=== PATIENT | male | born 1980 | race Two or more races ===

== ENCOUNTER 2024-01-14 07:42 | Inpatient (IN) | payer OTHER ==
[~2024-01-14] VITALS: Ht 165.1 cm; Wt 82.6 kg
[2024-01-14] VITALS (58 sets, daily range): BP systolic 79–135; BP diastolic 58–109; TEMP 97.8–100.2; O2SAT 67–100
[~2024-01-14 07:42] MED LIST: ALBU8.5H8 IH; ALBU8.5H8 INH; ASPI-1169 PO; CARV6.252 PO; FLUT1DIS3 IH; FURO40TA5 PO; NITR0.4T48 SL; PRED50TA PO
[2024-01-14] MEDS ORDERED: ADENOSINE 6 MG/2 ML VIAL ONE ×3 (08:04→21:18)
[2024-01-14] MEDS ORDERED: ONDANSETRON HCL/PF 4 MG/2 ML VIAL ONE (08:12)
[2024-01-14] MEDS ORDERED: MORPHINE SULFATE INJ 4 MG/ML DISP.SYRIN ONE (08:12)
[2024-01-14] MEDS ORDERED: AMIODARONE 150 MG/3 ML VIAL IV ONE ×2 (08:15→08:30)
[2024-01-14] MEDS: ONDANSETRON HCL/PF 4 MG/2 ML VIAL IVP ONE (08:20)
[2024-01-14] MEDS: MORPHINE SULFATE INJ 2 MG/ML DISP.SYRIN IV ONE (08:21)
[2024-01-14] MEDS: IV NS 0.9% 1,000 ML BAG IV ONE (08:21)
[2024-01-14 08:26] LABS: BASOPHILS # (AUTO) 0.1 K/uL (0.0-0.2); BASOPHILS % (AUTO) 0.8 % (0.0-2.0); EOSINOPHILS # (AUTO) 0.2 K/uL (0.0-0.7); EOSINOPHILS % (AUTO) 2.1 % (0.0-6.0); HEMATOCRIT 40 % (39-51); HEMOGLOBIN 13.1 g/dL (13.5-17.5); LYMPHOCYTES # (AUTO) 1.4 K/uL (0.8-4.8); LYMPHOCYTES % (AUTO) 14.9 % (20.0-44.0); MEAN CORPUSCULAR HEMOGLOBIN 30 PG (26.0-33.0); MEAN CORPUSCULAR HGB CONC 33 g/dl (31.0-36.0); MEAN CORPUSCULAR VOLUME 92 fL (80-96); MONOCYTES # (AUTO) 0.7 K/uL (0.1-1.30); MONOCYTES % (AUTO) 6.8 % (2.0-12.0); NEUTROPHILS # (AUTO) 7.2 K/uL (1.8-8.9); NEUTROPHILS % (AUTO) 75.4 % (43.0-81.0); PLATELET COUNT (AUTO) 213 K/uL (150-450); RED BLOOD CELL COUNT(AUTO) 4.38 MIL/uL (4.5-6.0); RED CELL DISTRIBUTION WIDTH 13.8 % (11.5-15.0); WHITE BLOOD COUNT (AUTO) 9.5 K/uL (4.3-11.0)
[2024-01-14] MEDS: AMIODARONE 150 MG in IV D5W 100 ML IV ONE ×2 (08:30→22:16)
[2024-01-14 08:32] LABS: CARBON DIOXIDE 27 mmol/L (21-32); CHLORIDE 106 mmol/L (98-107); GLUCOSE 105 mg/dL (74-106); POTASSIUM 3.9 mmol/L (3.5-5.1); SODIUM SERUM 140 mmol/L (136-145); UREA NITROGEN, BLOOD 16 mg/dL (7-18)
[2024-01-14 08:37] LABS: ALANINE AMINOTRANSFERASE 72 U/L (12-78); ALBUMIN 3.3 g/dL (3.4-5.0); ALKALINE PHOSPHATASE 104 U/L (46-116); ASPARTATE AMINOTRANSFERASE 58 U/L (15-37); BILIRUBIN,DIRECT 0.2 mg/dL (0.0-0.2); BILIRUBIN,TOTAL 0.8 mg/dL (0.2-1.0); LIPASE 46 U/L (16-77); TOTAL PROTEIN, SERUM 7.4 g/dL (6.4-8.2)
[2024-01-14] MEDS ORDERED: METO25TA4 PO (08:49)
[2024-01-14] MEDS ORDERED: NITR0.4T48 PO (08:49)
[2024-01-14] MEDS: AMIODARONE 450 MG in IV D5W 241 ML IV PRN ×3 (09:20→22:34)
[2024-01-14] MEDS: CEFEPIME 1 GM in IV D5W 50 ML IV ONE ×2 (10:27→12:11)
[2024-01-14] MEDS: VANCOMYCIN 1 GM in IV D5W 250 ML IV ONE (11:00)
[2024-01-14] MEDS ORDERED: CEFEPIME 2 GM in IV D5W 100 ML IV SCH (11:00)
[2024-01-14 11:09] LABS: AMPHETAMINE, URINE POSITIVE (NEGATIVE); BARBITURATE, URINE NEGATIVE (NEGATIVE); BENZODIAZEPINE, URINE NEGATIVE (NEGATIVE); CANNABINOID, URINE NEGATIVE (NEGATIVE); COCCAINE, URINE NEGATIVE (NEGATIVE); PHENCYCLIDINE SCREEN,URINE NEGATIVE (NEGATIVE)
[2024-01-14 11:15] LABS: OPIATE, URINE POSITIVE (NEGATIVE)
[2024-01-14] MEDS: VANCOMYCIN 500 MG in IV D5W 100ml IV ONE (12:06)
[2024-01-14] MEDS: PANTOPRAZOLE 40 MG VIAL IV SCH (12:12)
[2024-01-14] MEDS: ENOXAPARIN SODIUM 40 MG/0.4 ML DISP.SYRIN SQ SCH (12:13)
[2024-01-14 12:14] LABS: LACTIC ACID 2.1 mmol/L (0.4-2.0)
[2024-01-14] MEDS: ONDANSETRON HCL/PF 4 MG/2 ML VIAL IVP PRN (15:21)
[2024-01-14] MEDS: ACETAMINOPHEN 325 MG TABLET PO PRN (17:47)
[2024-01-14] MEDS: ADENOSINE 6 MG/2 ML VIAL IVP ONE ×3 (20:58→21:21)
[2024-01-14] MEDS: AMIODARONE 150 MG/3 ML VIAL IV ONE ×2 (22:12→22:16)
[2024-01-14] MEDS: CEFEPIME 2 GM in IV D5W 100 ML IV SCH (22:24)
[2024-01-14] MEDS: METOPROLOL SUCCINATE 25 MG TAB.SR.24H PO SCH (22:39)
[2024-01-14] MEDS: ONDANSETRON HCL/PF 4 MG/2 ML VIAL IV PRN (22:39)
[2024-01-14] MEDS: VANCOMYCIN HCL 1.25 GM in IV D5W 250 ML IV SCH (23:53)
[2024-01-15] VITALS (101 sets, daily range): BP systolic 32–156; BP diastolic 22–137; TEMP 97.8–98.7; O2SAT 47–100
[2024-01-15] MEDS ORDERED: KETOROLAC TROMETHAMINE 15 MG/ML VIAL IV ONE (03:30)
[2024-01-15] MEDS ORDERED: KETOROLAC TROMETHAMINE INJ 30 MG/ML VIAL IM PRN (03:30)
[2024-01-15] MEDS: KETOROLAC TROMETHAMINE INJ 30 MG/ML VIAL ONE (03:55)
[2024-01-15] MEDS: KETOROLAC TROMETHAMINE INJ 30 MG/ML VIAL IV PRN (03:57)
[2024-01-15] MEDS: NOREPINEPHRINE 8MG/250ML RTU 250 ML IV ONE (05:29)
[2024-01-15] MEDS: NOREPINEPHRINE 8 MG in IV D5W 242 ML IV PRN (05:36)
[2024-01-15 05:39] LABS: BASOPHILS % (AUTO) 0.2 % (0.0-2.0); HEMATOCRIT 44 % (39-51); HEMOGLOBIN 14.1 g/dL (13.5-17.5); LYMPHOCYTES # (AUTO) 1.4 K/uL (0.8-4.8); LYMPHOCYTES % (AUTO) 7.4 % (20.0-44.0); MEAN CORPUSCULAR HEMOGLOBIN 30 PG (26.0-33.0); MEAN CORPUSCULAR HGB CONC 32 g/dl (31.0-36.0); MEAN CORPUSCULAR VOLUME 95 fL (80-96); MONOCYTES # (AUTO) 1.7 K/uL (0.1-1.30); MONOCYTES % (AUTO) 9.1 % (2.0-12.0); NEUTROPHILS # (AUTO) 15.3 K/uL (1.8-8.9); NEUTROPHILS % (AUTO) 83.3 % (43.0-81.0); PLATELET COUNT (AUTO) 155 K/uL (150-450); RED BLOOD CELL COUNT(AUTO) 4.66 MIL/uL (4.5-6.0); RED CELL DISTRIBUTION WIDTH 14.5 % (11.5-15.0); WHITE BLOOD COUNT (AUTO) 18.3 K/uL (4.3-11.0)
[2024-01-15 06:00] LABS: CALCIUM, SERUM 7.8 mg/dL (8.5-10.1); CREATININE 2.5 mg/dL (0.6-1.3); MAGNESIUM 2.1 mg/dL (1.8-2.4); PHOSPHORUS 6.6 mg/dL (2.5-4.9); POTASSIUM 5.5 mmol/L (3.5-5.1)
[2024-01-15] MEDS: PHENYLEPHRINE 10 MG/ML VIAL ONE (06:23)
[2024-01-15 06:33] LABS: ABG BASE EXCESS -14.3 mmol/L (-2.0-3.0); ABG OXYGEN SATURATION 98.6 % (94.0-98.0); ABG PCO2 23.6 mmHg (35.0-48.0); ABG PH 7.266 (7.350-7.450); ABG PO2 148.7 mmHg (83.0-108.0); ABG TOTAL HEMOGLOBIN 15.6 G/dL (13.5-17.5); COHb 0.7 % (0.5-1.5); MetHb 0.2 % (0.0-1.5); O2Hb 97.7 % (94.0-97.0); SITE, ABG RIGHT RADIAL
[2024-01-15] MEDS: SODIUM BICARBONATE SYR 50 MEQ/50 ML DISP.SYRIN IV ONE ×3 (06:38→19:18)
[2024-01-15] MEDS: DEXTROSE 50%-WATER 50 ML DISP.SYRIN ONE (06:39)
[2024-01-15] MEDS: PHENYLEPHRINE 50 MG in IV NS 0.9% 245 ML IV PRN (06:41)
[2024-01-15] MEDS: Sodium Bicarbonate 100 MEQ in IV D5W 1,000 ML IV ONE (07:45)
[2024-01-15] MEDS ORDERED: VASOPRESSIN INJ 40 UNIT in IV NS 0.9% 38 ML IV PRN (08:00)
[2024-01-15] MEDS: IV NS 0.9% 250 ML BAG IV ONE (08:03)
[2024-01-15] MEDS: DOBUTamine 500 MG in IV D5W 210 ML IV PRN (09:12)
[2024-01-15 10:31] LABS: ABG BASE EXCESS -19.3 mmol/L (-2.0-3.0); ABG OXYGEN SATURATION 99.5 % (94.0-98.0); ABG PCO2 32.4 mmHg (35.0-48.0); ABG PH 7.086 (7.350-7.450); ABG PO2 459.4 mmHg (83.0-108.0); ABG TOTAL HEMOGLOBIN 14.9 G/dL (13.5-17.5); COHb 0.1 % (0.5-1.5); MetHb 0.3 % (0.0-1.5); O2Hb 99.1 % (94.0-97.0); SITE, ABG LEFT RADIAL
[2024-01-15] MEDS: NOREPINEPHRINE 32 MG in IV NS 0.9% 218 ML IV PRN (10:51)
[2024-01-15] MEDS: FUROSEMIDE 20 MG/2 ML VIAL IV ONE (13:05)
[2024-01-15 14:22] LABS: ABG BASE EXCESS -21.6 mmol/L (-2.0-3.0); ABG OXYGEN SATURATION 98.9 % (94.0-98.0); ABG PCO2 23.8 mmHg (35.0-48.0); ABG PH 7.078 (7.350-7.450); ABG TOTAL HEMOGLOBIN 14.2 G/dL (13.5-17.5); COHb 0.3 % (0.5-1.5); MetHb 0.3 % (0.0-1.5); O2Hb 98.3 % (94.0-97.0); SITE, ABG LEFT RADIAL
[2024-01-15] MEDS ORDERED: Sodium Bicarbonate 150 MEQ in IV D5W 1,000 ML IV PRN ×2 (14:30→19:00)
[2024-01-15] MEDS: Sodium Bicarbonate 150 MEQ in IV D5W 1,000 ML IV SCH (15:40)
[2024-01-15 16:10] LABS: BASOPHILS # (AUTO) 0.1 K/uL (0.0-0.2); BASOPHILS % (AUTO) 0.3 % (0.0-2.0); HEMATOCRIT 36 % (39-51); LYMPHOCYTES # (AUTO) 0.8 K/uL (0.8-4.8); LYMPHOCYTES % (AUTO) 3.4 % (20.0-44.0); MEAN CORPUSCULAR HEMOGLOBIN 30 PG (26.0-33.0); MEAN CORPUSCULAR HGB CONC 30 g/dl (31.0-36.0); MEAN CORPUSCULAR VOLUME 98 fL (80-96); MONOCYTES # (AUTO) 0.6 K/uL (0.1-1.30); MONOCYTES % (AUTO) 2.5 % (2.0-12.0); NEUTROPHILS # (AUTO) 22.6 K/uL (1.8-8.9); NEUTROPHILS % (AUTO) 93.8 % (43.0-81.0); PLATELET COUNT (AUTO) 87 K/uL (150-450); RED BLOOD CELL COUNT(AUTO) 3.69 MIL/uL (4.5-6.0); WHITE BLOOD COUNT (AUTO) 24.1 K/uL (4.3-11.0)
[2024-01-15] MEDS: SODIUM POLYSTYRENE SULFONATE 15 G/60 ML BOTTLE PO ONE (16:35)
[2024-01-15 16:43] LABS: ALBUMIN 2.3 g/dL (3.4-5.0); BILIRUBIN,TOTAL 3.8 mg/dL (0.2-1.0); CREATININE 3.3 mg/dL (0.6-1.3); MAGNESIUM 1.4 mg/dL (1.8-2.4); PHOSPHORUS 6.4 mg/dL (2.5-4.9); POTASSIUM 3.6 mmol/L (3.5-5.1); TOTAL PROTEIN, SERUM 5.3 g/dL (6.4-8.2)
[2024-01-15 18:01] LABS: ABG BASE EXCESS -20.3 mmol/L (-2.0-3.0); ABG OXYGEN SATURATION 96.4 % (94.0-98.0); ABG PCO2 21.1 mmHg (35.0-48.0); ABG PH 7.133 (7.350-7.450); ABG PO2 108.8 mmHg (83.0-108.0); ABG TOTAL HEMOGLOBIN 13.7 G/dL (13.5-17.5); COHb 0.3 % (0.5-1.5); MetHb 0.5 % (0.0-1.5); O2Hb 95.6 % (94.0-97.0); SITE, ABG LEFT RADIAL
[2024-01-15] MEDS ORDERED: DEXTROSE 50%-WATER 50 ML DISP.SYRIN IV PRN (19:00)
[2024-01-15 20:47] LABS: ANISOCYTOSIS 1+; BAND % (MANUAL) 6 % (0.0-5.0); LYMPHOCYTES % (MANUAL) 3 % (16-48); MONOCYTES % (MANUAL) 3 % (0-11.0); NEUTROPHILS % (MANUAL) 88 (42-76); PLATELET ESTIMATE DECREASED
[2024-01-15] MEDS: *INSULIN REGULAR(HUMULIN R)HUM 100 UNIT/ML VIAL SQ PRN (21:53)
[2024-01-15] MEDS: BLOOD SUGAR DIAGNOSTIC 1 EACH STRIP VI SCH (21:55)
[2024-01-15] MEDS: VANCOMYCIN HCL 1.25 GM in IV D5W 250 ML IV SCH (23:00)
[2024-01-15] MEDS ORDERED: VANCOMYCIN 1 GM in IV D5W 250ml IV SCH (23:00)
[2024-01-16] VITALS (82 sets, daily range): BP systolic 79–144; BP diastolic 37–98; TEMP 97.5–99; O2SAT 85–100
[2024-01-16 04:01] LABS: BASOPHILS % (AUTO) 0.2 % (0.0-2.0); HEMATOCRIT 34 % (39-51); HEMOGLOBIN 11.2 g/dL (13.5-17.5); LYMPHOCYTES # (AUTO) 1.5 K/uL (0.8-4.8); LYMPHOCYTES % (AUTO) 6.9 % (20.0-44.0); MEAN CORPUSCULAR HEMOGLOBIN 31 PG (26.0-33.0); MEAN CORPUSCULAR HGB CONC 33 g/dl (31.0-36.0); MEAN CORPUSCULAR VOLUME 93 fL (80-96); MONOCYTES # (AUTO) 0.5 K/uL (0.1-1.30); MONOCYTES % (AUTO) 2.2 % (2.0-12.0); NEUTROPHILS # (AUTO) 19.3 K/uL (1.8-8.9); NEUTROPHILS % (AUTO) 90.7 % (43.0-81.0); PLATELET COUNT (AUTO) 86 K/uL (150-450); RED BLOOD CELL COUNT(AUTO) 3.65 MIL/uL (4.5-6.0); RED CELL DISTRIBUTION WIDTH 13.7 % (11.5-15.0); WHITE BLOOD COUNT (AUTO) 21.3 K/uL (4.3-11.0)
[2024-01-16 04:46] LABS: ANISOCYTOSIS 1+; LYMPHOCYTES % (MANUAL) 8 % (16-48); MONOCYTES % (MANUAL) 1 % (0-11.0); NEUTROPHILS % (MANUAL) 91 (42-76); PLATELET ESTIMATE DECREASED
[2024-01-16 07:54] LABS: BILIRUBIN,TOTAL 4.6 mg/dL (0.2-1.0); CALCIUM, SERUM 6.9 mg/dL (8.5-10.1); CREATININE 4.6 mg/dL (0.6-1.3); MAGNESIUM 1.3 mg/dL (1.8-2.4); PHOSPHORUS 6.5 mg/dL (2.5-4.9); POTASSIUM 3.4 mmol/L (3.5-5.1); TOTAL PROTEIN, SERUM 5.6 g/dL (6.4-8.2)
[2024-01-16] MEDS: ENOXAPARIN SODIUM 40 MG/0.4 ML DISP.SYRIN SQ SCH (08:19)
[2024-01-16 09:01] LABS: ALBUMIN 2.5 g/dL (3.4-5.0)
[2024-01-16 09:40] LABS: ABG BASE EXCESS -2.3 mmol/L (-2.0-3.0); ABG OXYGEN SATURATION 95.6 % (94.0-98.0); ABG PCO2 33.8 mmHg (35.0-48.0); ABG PH 7.421 (7.350-7.450); ABG PO2 85.1 mmHg (83.0-108.0); ABG TOTAL HEMOGLOBIN 11.9 G/dL (13.5-17.5); COHb 0.2 % (0.5-1.5); MetHb 0.1 % (0.0-1.5); O2Hb 95.3 % (94.0-97.0)
[2024-01-16] MEDS: VANCOMYCIN HCL 1.25 GM in IV D5W 250 ML IV SCH (22:35)
[2024-01-17] VITALS (64 sets, daily range): BP systolic 80–153; BP diastolic 34–137; TEMP 96.5–97.7; O2SAT 76–99
[2024-01-17 05:26] LABS: CALCIUM, SERUM 6.2 mg/dL (8.5-10.1); CREATININE 6.4 mg/dL (0.6-1.3)
[2024-01-17 08:06] LABS: PTH, INTACT 196 pg/mL (15-65)
[2024-01-17] MEDS: CEFEPIME 2 GM in IV D5W 100 ML IV SCH (09:11)
[2024-01-17] MEDS: PANTOPRAZOLE 40 MG TABLET.DR PO SCH (09:12)
[2024-01-17 10:04] LABS: ALBUMIN 2.5 g/dL (3.4-5.0); BILIRUBIN,DIRECT 2.7 mg/dL (0.0-0.2); BILIRUBIN,TOTAL 5.7 mg/dL (0.2-1.0); TOTAL PROTEIN, SERUM 5.2 g/dL (6.4-8.2)
[2024-01-17 14:50] LABS: INR 3.05 (0.91-1.10); PROTHROMBIN TIME 30.1 SECS (9.2-11.1)
[2024-01-17] MEDS: INSULIN REGULAR, HUMAN 100 UNIT/ML 3 ML VIAL SQ PRN (21:19)
[2024-01-18] VITALS (83 sets, daily range): BP systolic 82–147; BP diastolic 41–107; TEMP 96.5–98.8; O2SAT 90–100
[2024-01-18 04:27] LABS: BASOPHILS % (AUTO) 0.2 % (0.0-2.0); EOSINOPHILS % (AUTO) 0.2 % (0.0-6.0); HEMATOCRIT 31 % (39-51); HEMOGLOBIN 10.5 g/dL (13.5-17.5); LYMPHOCYTES # (AUTO) 0.8 K/uL (0.8-4.8); MEAN CORPUSCULAR HEMOGLOBIN 31 PG (26.0-33.0); MEAN CORPUSCULAR HGB CONC 34 g/dl (31.0-36.0); MEAN CORPUSCULAR VOLUME 90 fL (80-96); MONOCYTES # (AUTO) 0.7 K/uL (0.1-1.30); MONOCYTES % (AUTO) 6.2 % (2.0-12.0); NEUTROPHILS % (AUTO) 85.4 % (43.0-81.0); PLATELET COUNT (AUTO) 113 K/uL (150-450); RED BLOOD CELL COUNT(AUTO) 3.42 MIL/uL (4.5-6.0); RED CELL DISTRIBUTION WIDTH 13.9 % (11.5-15.0); WHITE BLOOD COUNT (AUTO) 10.5 K/uL (4.3-11.0)
[2024-01-18 04:33] LABS: INR 2.92 (0.91-1.10); PROTHROMBIN TIME 28.9 SECS (9.2-11.1)
[2024-01-18 04:39] LABS: CALCIUM, SERUM 6.2 mg/dL (8.5-10.1); POTASSIUM 3.4 mmol/L (3.5-5.1)
[2024-01-18 04:44] LABS: CREATININE 8.6 mg/dL (0.6-1.3)
[2024-01-18 06:11] LABS: *SPE A/G RATIO 0.9 (0.7-1.7); *SPE ALBUMIN 2.5 g/dL (2.9-4.4); *SPE ALPHA-1-GLOBULIN 0.2 g/dL (0.0-0.4); *SPE ALPHA-2-GLOBULIN 0.7 g/dL (0.4-1.0); *SPE BETA GLOBULIN 0.7 g/dL (0.7-1.3); *SPE GLOBULIN, TOTAL 2.7 g/dL (2.2-3.9); *SPE M-SPIKE Not Observed g/dL (Not Observed); *SPE PROTEIN TOTAL 5.2 g/dL (6.0-8.5)
[2024-01-18 06:11] LABS: HEPATITIS B SURFACE AB Non Reactive (.)
[2024-01-18] MEDS: PANTOPRAZOLE 40 MG VIAL IV SCH (09:59)
[2024-01-18] MEDS ORDERED: PHYTONADIONE INJ 10 MG/1 ML AMPUL IV SCH (12:00)
[2024-01-18] MEDS: PHYTONADIONE INJ 10 MG/1 ML AMPUL SQ ONE (12:50)
[2024-01-18] MEDS: FENTANYL PF 100MCG/2ML AMPUL IV ONE (13:11)
[2024-01-18] MEDS: LORAZEPAM INJ 2 MG/ML VIAL IV PRN (23:43)
[2024-01-19] VITALS (65 sets, daily range): BP systolic 104–143; BP diastolic 43–93; TEMP 98–98.6; O2SAT 92–100
[2024-01-19] MEDS: VANCOMYCIN 500 MG in IV D5W 100 ML IV PRN (01:18)
[2024-01-19 04:58] LABS: BASOPHILS % (AUTO) 0.4 % (0.0-2.0); EOSINOPHILS # (AUTO) 0.2 K/uL (0.0-0.7); EOSINOPHILS % (AUTO) 2.3 % (0.0-6.0); HEMATOCRIT 27 % (39-51); HEMOGLOBIN 9.3 g/dL (13.5-17.5); LYMPHOCYTES # (AUTO) 0.7 K/uL (0.8-4.8); LYMPHOCYTES % (AUTO) 6.3 % (20.0-44.0); MEAN CORPUSCULAR HEMOGLOBIN 31 PG (26.0-33.0); MEAN CORPUSCULAR HGB CONC 34 g/dl (31.0-36.0); MEAN CORPUSCULAR VOLUME 90 fL (80-96); MONOCYTES # (AUTO) 1.2 K/uL (0.1-1.30); MONOCYTES % (AUTO) 11.7 % (2.0-12.0); NEUTROPHILS # (AUTO) 8.4 K/uL (1.8-8.9); NEUTROPHILS % (AUTO) 79.3 % (43.0-81.0); PLATELET COUNT (AUTO) 111 K/uL (150-450); RED BLOOD CELL COUNT(AUTO) 3.01 MIL/uL (4.5-6.0); RED CELL DISTRIBUTION WIDTH 14.1 % (11.5-15.0); WHITE BLOOD COUNT (AUTO) 10.6 K/uL (4.3-11.0)
[2024-01-19 05:29] LABS: CALCIUM, SERUM 6.7 mg/dL (8.5-10.1); POTASSIUM 3.2 mmol/L (3.5-5.1)
[2024-01-19 05:35] LABS: CREATININE 8.2 mg/dL (0.6-1.3)
[2024-01-19 09:16] LABS: INR 2.05 (0.91-1.10); PARTIAL THROMBOPLASTIN TIME 33.9 SEC (24.3-34.3); PROTHROMBIN TIME 20.7 SECS (9.2-11.1)
[2024-01-20] VITALS (86 sets, daily range): BP systolic 70–139; BP diastolic 40–115; TEMP 98–208.4; O2SAT 90–100
[2024-01-20 05:12] LABS: CALCIUM, SERUM 7.2 mg/dL (8.5-10.1); CREATININE 7.3 mg/dL (0.6-1.3); POTASSIUM 3.7 mmol/L (3.5-5.1)
[2024-01-20] MEDS: AMIODARONE 150 MG in IV D5W 100 ML IV ONE (06:42)
[2024-01-20] MEDS: AMIODARONE 450 MG in IV D5W 241 ML IV PRN (07:01)
[2024-01-20] MEDS: OCTREOTIDE 500 MCG in IV NS 0.9% 99 ML IV PRN (09:15)
[2024-01-20 09:48] LABS: BASOPHILS % (AUTO) 0.3 % (0.0-2.0); EOSINOPHILS # (AUTO) 0.3 K/uL (0.0-0.7); EOSINOPHILS % (AUTO) 1.8 % (0.0-6.0); HEMATOCRIT 25 % (39-51); HEMOGLOBIN 8.4 g/dL (13.5-17.5); LYMPHOCYTES # (AUTO) 1.1 K/uL (0.8-4.8); LYMPHOCYTES % (AUTO) 6.9 % (20.0-44.0); MEAN CORPUSCULAR HEMOGLOBIN 30 PG (26.0-33.0); MEAN CORPUSCULAR HGB CONC 33 g/dl (31.0-36.0); MEAN CORPUSCULAR VOLUME 91 fL (80-96); MONOCYTES # (AUTO) 2.2 K/uL (0.1-1.30); NEUTROPHILS # (AUTO) 12.1 K/uL (1.8-8.9); PLATELET COUNT (AUTO) 111 K/uL (150-450); RED BLOOD CELL COUNT(AUTO) 2.78 MIL/uL (4.5-6.0); RED CELL DISTRIBUTION WIDTH 14.2 % (11.5-15.0); WHITE BLOOD COUNT (AUTO) 15.6 K/uL (4.3-11.0)
[2024-01-20] MEDS: ESMOLOL IVPB PREMIX 2,500 MG in PREMIX 1 EA IV PRN (10:07)
[2024-01-20 10:08] LABS: FIBRINOGEN ACTIVITY 230 Mg/dL (213-485); INR 1.44 (0.91-1.10); PARTIAL THROMBOPLASTIN TIME 30.3 SEC (24.3-34.3); PROTHROMBIN TIME 14.9 SECS (9.2-11.1)
[2024-01-20 10:10] LABS: HEPATITIS B CORE AB, IgM Negative (Negative); HEPATITIS B CORE AB, TOTAL Negative (Negative); HEPATITIS B SURFACE AB Non Reactive (.)
[2024-01-20 10:31] LABS: D-DIMER > 35.20 mg/L(FEU (0.17-0.50)
[2024-01-20] MEDS: PHENYLEPHRINE 100 MG in IV NS 0.9% 240 ML IV PRN (15:42)
[2024-01-20 15:45] LABS: C-REACTIVE PROTEIN 10.91 mg/dL (0.0-0.30)
[2024-01-20 16:02] LABS: FREE PSA 0.38 ng/mL (0.00-45); PROSTATE SPECIFIC ANTIGEN SCR 3.66 ng/mL (0.00-4.00); THYROID STIMULATING HORMONE 0.04 uIU/mL (0.358-3.74)
[2024-01-20 16:10] LABS: HEMOGLOBIN 7.2 g/dL (13.5-17.5)
[2024-01-20] MEDS: PHYTONADIONE INJ 10 MG/1 ML AMPUL SQ ONE (16:26)
[2024-01-20] MEDS: PANTOPRAZOLE 80 MG in IV NS 0.9% 500 ML IV SCH (17:36)
[2024-01-20 17:40] LABS: RHEUMATOID FACTOR SCREEN NEGATIVE (NEGATIVE)
[2024-01-20] MEDS: diphenhydrAMINE HCL 50 MG/ML VIAL IV ONE (18:40)
[2024-01-20] MEDS: DOBUTamine 500 MG in IV D5W 210 ML IV PRN (19:33)
[2024-01-20] MEDS: LORAZEPAM INJ 2 MG/ML VIAL IV ONE (19:47)
[2024-01-20] MEDS ORDERED: PANTOPRAZOLE 40 MG VIAL IV SCH (22:00)
[2024-01-21] VITALS (95 sets, daily range): BP systolic 54–149; BP diastolic 38–102; TEMP 97.9–98.4; O2SAT 95–100
[2024-01-21] MEDS: LORAZEPAM INJ 2 MG/ML VIAL IV PRN (00:15)
[2024-01-21] MEDS: DoBUTamine 500 MG/250 ML PIGGYBACK IV ONE (02:41)
[2024-01-21 04:01] LABS: BASOPHILS # (AUTO) 0.1 K/uL (0.0-0.2); BASOPHILS % (AUTO) 0.3 % (0.0-2.0); EOSINOPHILS # (AUTO) 0.3 K/uL (0.0-0.7); EOSINOPHILS % (AUTO) 1.7 % (0.0-6.0); HEMATOCRIT 23 % (39-51); HEMOGLOBIN 7.5 g/dL (13.5-17.5); LYMPHOCYTES # (AUTO) 1.9 K/uL (0.8-4.8); LYMPHOCYTES % (AUTO) 10.6 % (20.0-44.0); MEAN CORPUSCULAR HEMOGLOBIN 31 PG (26.0-33.0); MEAN CORPUSCULAR HGB CONC 33 g/dl (31.0-36.0); MEAN CORPUSCULAR VOLUME 94 fL (80-96); MONOCYTES # (AUTO) 2.8 K/uL (0.1-1.30); MONOCYTES % (AUTO) 15.9 % (2.0-12.0); NEUTROPHILS # (AUTO) 12.8 K/uL (1.8-8.9); NEUTROPHILS % (AUTO) 71.5 % (43.0-81.0); PLATELET COUNT (AUTO) 110 K/uL (150-450); RED BLOOD CELL COUNT(AUTO) 2.42 MIL/uL (4.5-6.0); RED CELL DISTRIBUTION WIDTH 14.1 % (11.5-15.0); WHITE BLOOD COUNT (AUTO) 17.9 K/uL (4.3-11.0)
[2024-01-21 04:07] LABS: CALCIUM, SERUM 6.7 mg/dL (8.5-10.1); CREATININE 6.5 mg/dL (0.6-1.3); POTASSIUM 4.4 mmol/L (3.5-5.1)
[2024-01-21 04:17] LABS: FIBRINOGEN ACTIVITY 353 Mg/dL (213-485); INR 1.24 (0.91-1.10); PARTIAL THROMBOPLASTIN TIME 30.3 SEC (24.3-34.3)
[2024-01-21 04:23] LABS: D-DIMER > 35.20 mg/L(FEU (0.17-0.50)
[2024-01-21 05:44] LABS: ANISOCYTOSIS 1+; EOSINOPHILS % (MANUAL) 3 % (0-4); LYMPHOCYTES % (MANUAL) 12 % (16-48); MONOCYTES % (MANUAL) 18 % (0-11.0); NEUTROPHILS % (MANUAL) 67 (42-76); PLATELET ESTIMATE DECREASED
[2024-01-21] MEDS: ESMOLOL IVPB PREMIX 250 ML IV ONE (06:59)
[2024-01-21] MEDS ORDERED: ESMOLOL IN SODIUM CHLORIDE,ISO 2,000 MG in PREMIX 1 EA IV PRN (07:00)
[2024-01-21] MEDS: PROPOFOL 100 ML IV PRN (07:18)
[2024-01-21] MEDS ORDERED: SODIUM BICARBONATE SYR 50 MEQ/50 ML DISP.SYRIN IV ONE (07:22)
[2024-01-21 07:25] LABS: ALBUMIN 2.1 g/dL (3.4-5.0); BILIRUBIN,DIRECT 4.5 mg/dL (0.0-0.2); BILIRUBIN,TOTAL 5.7 mg/dL (0.2-1.0); TOTAL PROTEIN, SERUM 5.5 g/dL (6.4-8.2)
[2024-01-21] MEDS: HYDROCORTISONE SOD SUCCINATE 100 MG/2 ML VIAL IV ONE (07:33)
[2024-01-21 08:16] LABS: ABG BASE EXCESS -8.6 mmol/L (-2.0-3.0); ABG OXYGEN SATURATION 84.5 % (94.0-98.0); ABG PCO2 35.6 mmHg (35.0-48.0); ABG PH 7.298 (7.350-7.450); ABG PO2 57.6 mmHg (83.0-108.0); ABG TOTAL HEMOGLOBIN 7.4 G/dL (13.5-17.5); COHb 0.1 % (0.5-1.5); MetHb 0.4 % (0.0-1.5); O2Hb 84.1 % (94.0-97.0); PEEP,BG 0 cm H2O; SITE, ABG VBG - N/A; VT, ABG 500 mL
[2024-01-21 09:39] LABS: BASOPHILS % (AUTO) 0.2 % (0.0-2.0); EOSINOPHILS # (AUTO) 0.1 K/uL (0.0-0.7); EOSINOPHILS % (AUTO) 0.7 % (0.0-6.0); HEMATOCRIT 21 % (39-51); LYMPHOCYTES # (AUTO) 0.8 K/uL (0.8-4.8); LYMPHOCYTES % (AUTO) 4.6 % (20.0-44.0); MEAN CORPUSCULAR HEMOGLOBIN 31 PG (26.0-33.0); MEAN CORPUSCULAR HGB CONC 33 g/dl (31.0-36.0); MEAN CORPUSCULAR VOLUME 93 fL (80-96); MONOCYTES # (AUTO) 2.3 K/uL (0.1-1.30); NEUTROPHILS # (AUTO) 14.5 K/uL (1.8-8.9); NEUTROPHILS % (AUTO) 81.5 % (43.0-81.0); PLATELET COUNT (AUTO) 111 K/uL (150-450); RED BLOOD CELL COUNT(AUTO) 2.27 MIL/uL (4.5-6.0); WHITE BLOOD COUNT (AUTO) 17.8 K/uL (4.3-11.0)
[2024-01-21] MEDS ORDERED: EPINEPHRINE (1:10,000) SYRINGE 1 MG/10 ML DISP.SYRIN IVP ONE (12:10)
[2024-01-21] MEDS: HYDROCORTISONE SOD SUCCINATE 100 MG/2 ML VIAL IV SCH (12:35)
[2024-01-21 12:46] LABS: HIV-1 p24 ANTIGEN NON REACTIVE (NONREACTIVE); HIV-1/2 ANTIBODY NON REACTIVE (NONREACTIVE)
[2024-01-21 15:19] LABS: LYMPHOCYTES # (AUTO) 1.1 K/uL (0.8-4.8)
[2024-01-21 15:26] LABS: BASOPHILS % (AUTO) 0.1 % (0.0-2.0); EOSINOPHILS % (AUTO) 0.1 % (0.0-6.0); HEMATOCRIT 21 % (39-51); LYMPHOCYTES % (AUTO) 5.1 % (20.0-44.0); MEAN CORPUSCULAR HEMOGLOBIN 31 PG (26.0-33.0); MEAN CORPUSCULAR HGB CONC 33 g/dl (31.0-36.0); MEAN CORPUSCULAR VOLUME 93 fL (80-96); MONOCYTES # (AUTO) 1.7 K/uL (0.1-1.30); MONOCYTES % (AUTO) 8.3 % (2.0-12.0); NEUTROPHILS % (AUTO) 86.4 % (43.0-81.0); PLATELET COUNT (AUTO) 115 K/uL (150-450); RED BLOOD CELL COUNT(AUTO) 2.22 MIL/uL (4.5-6.0); RED CELL DISTRIBUTION WIDTH 14.2 % (11.5-15.0); WHITE BLOOD COUNT (AUTO) 20.8 K/uL (4.3-11.0)
[2024-01-21 15:35] LABS: HEMOGLOBIN 6.8 g/dL (13.5-17.5)
[2024-01-21 17:33] LABS: LYMPHOCYTES % (MANUAL) 3 % (16-48); MONOCYTES % (MANUAL) 6 % (0-11.0); NEUTROPHILS % (MANUAL) 91 (42-76); PLATELET ESTIMATE DECREASED
[2024-01-21 17:34] LABS: ANISOCYTOSIS 1+
[2024-01-21] MEDS: METOPROLOL TARTRATE INJ 5 MG/5 ML AMPUL IVP ONE (18:51)
[2024-01-21] MEDS: LIDOCAINE 100MG/5ML DISP SYR IV ONE (18:59)
[2024-01-21] MEDS: IV LIDOCAINE HCL/D5W/PF/500ML 2,000 MG in PREMIX 1 EA IV PRN (19:05)
[2024-01-21] MEDS: OCTREOTIDE 1,250 MCG in IV NS 0.9% 247.5 ML IV SCH (21:16)
[2024-01-22] VITALS (98 sets, daily range): BP systolic 91–154; BP diastolic 54–104; TEMP 98–99.3; O2SAT 98–100
[2024-01-22 08:06] LABS: COMPLEMENT C3, SERUM 63 mg/dL (82-167); COMPLEMENT C4, SERUM 9 mg/dL (12-38)
[2024-01-22 08:27] LABS: BASOPHILS % (AUTO) 0.1 % (0.0-2.0); EOSINOPHILS % (AUTO) 0.1 % (0.0-6.0); HEMATOCRIT 22 % (39-51); HEMOGLOBIN 7.8 g/dL (13.5-17.5); LYMPHOCYTES # (AUTO) 1.1 K/uL (0.8-4.8); LYMPHOCYTES % (AUTO) 6.8 % (20.0-44.0); MEAN CORPUSCULAR HEMOGLOBIN 33 PG (26.0-33.0); MEAN CORPUSCULAR HGB CONC 35 g/dl (31.0-36.0); MEAN CORPUSCULAR VOLUME 95 fL (80-96); MONOCYTES # (AUTO) 1.6 K/uL (0.1-1.30); MONOCYTES % (AUTO) 9.4 % (2.0-12.0); NEUTROPHILS # (AUTO) 14.1 K/uL (1.8-8.9); NEUTROPHILS % (AUTO) 83.6 % (43.0-81.0); RED BLOOD CELL COUNT(AUTO) 2.36 MIL/uL (4.5-6.0); RED CELL DISTRIBUTION WIDTH 14.6 % (11.5-15.0); WHITE BLOOD COUNT (AUTO) 16.8 K/uL (4.3-11.0)
[2024-01-22 08:35] LABS: PLATELET COUNT (AUTO) 110 K/uL (150-450)
[2024-01-22 08:47] LABS: INR 1.22 (0.91-1.10); PARTIAL THROMBOPLASTIN TIME 27.3 SEC (24.3-34.3); PROTHROMBIN TIME 12.8 SECS (9.2-11.1)
[2024-01-22 08:49] LABS: D-DIMER 20.37 mg/L(FEU (0.17-0.50)
[2024-01-22 10:37] LABS: ALBUMIN 1.7 g/dL (3.4-5.0); BILIRUBIN,DIRECT 3.9 mg/dL (0.0-0.2); BILIRUBIN,TOTAL 4.9 mg/dL (0.2-1.0); MAGNESIUM 2.2 mg/dL (1.8-2.4); PHOSPHORUS 6.4 mg/dL (2.5-4.9); POTASSIUM 4.3 mmol/L (3.5-5.1); TOTAL PROTEIN, SERUM 5.1 g/dL (6.4-8.2)
[2024-01-22] MEDS: methylPREDNISolone SOD SUCC 500 MG in IV NS 0.9% 100 ML IV ONE (10:40)
[2024-01-22 11:05] LABS: CALCIUM, SERUM 5.9 mg/dL (8.5-10.1); CREATININE 8.2 mg/dL (0.6-1.3)
[2024-01-22] MEDS: INSULIN REGULAR, HUMAN 100 UNIT/ML 3 ML VIAL SQ PRN (12:30)
[2024-01-22] MEDS: BLOOD SUGAR DIAGNOSTIC 1 EACH STRIP IN SCH (12:30)
[2024-01-22 22:08] LABS: FREE KAPPA LT CHAINS SERUM 143.6 mg/L (3.3-19.4); FREE LAMBDA LT CHAIN SERUM 103.2 mg/L (5.7-26.3); IMMUNOGLOBULIN A, SERUM <5 mg/dL (90-386); IMMUNOGLOBULIN G, SERUM 1157 mg/dL (603-1613); IMMUNOGLOBULIN M, SERUM 69 mg/dL (20-172); KAPPA/LAMBDA RATIO SERUM 1.39 (0.26-1.65)
[2024-01-22 23:06] LABS: HEPATITIS Be AB Non Reactive (Negative)
[2024-01-23] VITALS (87 sets, daily range): BP systolic 96–129; BP diastolic 59–94; TEMP 98–99.3; O2SAT 98–99
[2024-01-23 00:08] LABS: FOLIC ACID 11.6 ng/mL (>3.0)
[2024-01-23 01:10] LABS: HEPATITIS B SURFACE AB Reactive (.)
[2024-01-23 04:46] LABS: CALCIUM, SERUM 6.5 mg/dL (8.5-10.1); POTASSIUM 4.4 mmol/L (3.5-5.1)
[2024-01-23 04:47] LABS: CREATININE 7.6 mg/dL (0.6-1.3)
[2024-01-23 04:54] LABS: D-DIMER 14.72 mg/L(FEU (0.17-0.50); INR 1.23 (0.91-1.10); PARTIAL THROMBOPLASTIN TIME 24.6 SEC (24.3-34.3); PROTHROMBIN TIME 12.9 SECS (9.2-11.1)
[2024-01-23] MEDS ORDERED: methylPREDNISolone SOD SUCC 125 MG/2ML VIAL IV ONE (07:30)
[2024-01-23 07:56] LABS: BASOPHILS # (AUTO) 0.1 K/uL (0.0-0.2); BASOPHILS % (AUTO) 0.3 % (0.0-2.0); LYMPHOCYTES % (AUTO) 6.5 % (20.0-44.0); MEAN CORPUSCULAR HEMOGLOBIN 34 PG (26.0-33.0); MEAN CORPUSCULAR HGB CONC 36 g/dl (31.0-36.0); MEAN CORPUSCULAR VOLUME 93 fL (80-96); MONOCYTES # (AUTO) 1.1 K/uL (0.1-1.30); NEUTROPHILS % (AUTO) 86.2 % (43.0-81.0); PLATELET COUNT (AUTO) 125 K/uL (150-450); RED BLOOD CELL COUNT(AUTO) 2.34 MIL/uL (4.5-6.0); RED CELL DISTRIBUTION WIDTH 15.1 % (11.5-15.0); WHITE BLOOD COUNT (AUTO) 15.1 K/uL (4.3-11.0)
[2024-01-23 07:58] LABS: HEMATOCRIT 22 % (39-51); HEMOGLOBIN 7.9 g/dL (13.5-17.5)
[2024-01-23 08:58] LABS: LYMPHOCYTES % (MANUAL) 9 % (16-48); NEUTROPHILS % (MANUAL) 84 (42-76)
[2024-01-23 08:59] LABS: ANISOCYTOSIS 1+; BASOPHILS % (MANUAL) 0 % (0.0-2.0); EOSINOPHILS % (MANUAL) 1 % (0-4); MONOCYTES % (MANUAL) 4 % (0-11.0); PLATELET ESTIMATE DECREASED
[2024-01-23] MEDS: methylPREDNISolone SOD SUCC 500 MG in IV NS 0.9% 100 ML IV ONE (10:57)
[2024-01-23 11:10] LABS: THYROID STIMULATING HORMONE 0.01 uIU/mL (0.358-3.74)
[2024-01-23] MEDS: MIDAZOLAM HCL 50 MG in IV NS 0.9% 40 ML IV PRN (11:11)
[2024-01-23] MEDS: FENTANYL CITRAT IV 2,500 MCG in IV NS 0.9% 200 ML IV PRN (11:12)
[2024-01-23 12:07] LABS: *ANA ANTI-CENTROMERE B AB <0.2 AI (0.0-0.9); *ANA ANTI-DNA(DS) AB, QN 1 IU/mL (0-9); *ANA ANTI-JO-1 <0.2 AI (0.0-0.9); *ANA ANTICHROMATIN ANTIBODY <0.2 AI (0.0-0.9); *ANA RNP ANTIBODIES <0.2 AI (0.0-0.9); *ANA SJOGREN'S ANTI-SS-A <0.2 AI (0.0-0.9); *ANA SJOGREN'S ANTI-SS-B <0.2 AI (0.0-0.9); *ANAANTI-SCLERODERMA-70 AB <0.2 AI (0.0-0.9); *ANASMITH AB <0.2 AI (0.0-0.9)
[2024-01-23 12:07] LABS: *ANA ANTI-CENTROMERE B AB <0.2 AI (0.0-0.9); *ANA ANTI-DNA(DS) AB, QN 1 IU/mL (0-9); *ANA ANTI-JO-1 <0.2 AI (0.0-0.9); *ANA ANTICHROMATIN ANTIBODY <0.2 AI (0.0-0.9); *ANA RNP ANTIBODIES <0.2 AI (0.0-0.9); *ANA SJOGREN'S ANTI-SS-A <0.2 AI (0.0-0.9); *ANA SJOGREN'S ANTI-SS-B <0.2 AI (0.0-0.9); *ANAANTI-SCLERODERMA-70 AB <0.2 AI (0.0-0.9); *ANASMITH AB <0.2 AI (0.0-0.9)
[2024-01-23] MEDS: MIDAZOLAM HCL 100 MG in IV NS 0.9% 80 ML IV PRN (21:16)
[2024-01-24] VITALS (31 sets, daily range): BP systolic 112–140; BP diastolic 60–96; TEMP 98–98.8; O2SAT 73–100
[2024-01-24 04:44] LABS: BASOPHILS # (AUTO) 0.1 K/uL (0.0-0.2); BASOPHILS % (AUTO) 0.6 % (0.0-2.0); HEMATOCRIT 23 % (39-51); HEMOGLOBIN 7.5 g/dL (13.5-17.5); LYMPHOCYTES # (AUTO) 0.5 K/uL (0.8-4.8); LYMPHOCYTES % (AUTO) 3.6 % (20.0-44.0); MEAN CORPUSCULAR HEMOGLOBIN 31 PG (26.0-33.0); MEAN CORPUSCULAR HGB CONC 33 g/dl (31.0-36.0); MEAN CORPUSCULAR VOLUME 93 fL (80-96); MONOCYTES # (AUTO) 0.6 K/uL (0.1-1.30); MONOCYTES % (AUTO) 4.7 % (2.0-12.0); NEUTROPHILS # (AUTO) 11.9 K/uL (1.8-8.9); NEUTROPHILS % (AUTO) 91.1 % (43.0-81.0); PLATELET COUNT (AUTO) 141 K/uL (150-450); RED BLOOD CELL COUNT(AUTO) 2.45 MIL/uL (4.5-6.0); RED CELL DISTRIBUTION WIDTH 15.2 % (11.5-15.0)
[2024-01-24 04:47] LABS: CREATININE 7.3 mg/dL (0.6-1.3); POTASSIUM 4.4 mmol/L (3.5-5.1)
[2024-01-24 05:00] LABS: INR 1.2 (0.91-1.10); PARTIAL THROMBOPLASTIN TIME 24.3 SEC (24.3-34.3); PROTHROMBIN TIME 12.6 SECS (9.2-11.1)
[2024-01-24 05:01] LABS: D-DIMER 14.35 mg/L(FEU (0.17-0.50)
[2024-01-24] MEDS ORDERED: TPN/PPN PER PHARMACY IV PRN (10:00)
[2024-01-24 10:49] LABS: MAGNESIUM 2.5 mg/dL (1.8-2.4)
[2024-01-24 10:56] LABS: PHOSPHORUS 9.2 mg/dL (2.5-4.9)
[2024-01-24 11:07] LABS: FOLIC ACID 11.1 ng/mL (>3.0)
[2024-01-24] MEDS: PPN BAG #1 IV SCH (14:49)
[2024-01-24] MEDS: IV LIDOCAINE HCL/D5W/PF/500ML 2,000 MG in PREMIX 1 EA IV PRN (20:22)
[2024-01-25] VITALS (28 sets, daily range): BP systolic 114–141; BP diastolic 71–91; TEMP 97.5–98.9; O2SAT 98–100
[2024-01-25 04:31] LABS: HEMATOCRIT 23 % (39-51); HEMOGLOBIN 7.4 g/dL (13.5-17.5); LYMPHOCYTES # (AUTO) 0.4 K/uL (0.8-4.8); LYMPHOCYTES % (AUTO) 2.9 % (20.0-44.0); MEAN CORPUSCULAR HEMOGLOBIN 30 PG (26.0-33.0); MEAN CORPUSCULAR HGB CONC 32 g/dl (31.0-36.0); MEAN CORPUSCULAR VOLUME 93 fL (80-96); MONOCYTES # (AUTO) 0.7 K/uL (0.1-1.30); MONOCYTES % (AUTO) 4.6 % (2.0-12.0); NEUTROPHILS % (AUTO) 92.5 % (43.0-81.0); PLATELET COUNT (AUTO) 171 K/uL (150-450); RED BLOOD CELL COUNT(AUTO) 2.47 MIL/uL (4.5-6.0); RED CELL DISTRIBUTION WIDTH 15.9 % (11.5-15.0); WHITE BLOOD COUNT (AUTO) 15.1 K/uL (4.3-11.0)
[2024-01-25 05:17] LABS: CALCIUM, SERUM 7.4 mg/dL (8.5-10.1); MAGNESIUM 2.6 mg/dL (1.8-2.4); POTASSIUM 4.4 mmol/L (3.5-5.1)
[2024-01-25 05:41] LABS: PHOSPHORUS 8.6 mg/dL (2.5-4.9)
[2024-01-25 06:08] LABS: INR 1.24 (0.91-1.10); PARTIAL THROMBOPLASTIN TIME 23.6 SEC (24.3-34.3)
[2024-01-25 06:24] LABS: D-DIMER 15.74 mg/L(FEU (0.17-0.50)
[2024-01-25] MEDS: METOPROLOL TARTRATE 25 MG TABLET PO SCH (10:30)
[2024-01-25] MEDS: HYDROCORTISONE SOD SUCCINATE 100 MG/2 ML VIAL IV SCH (12:57)
[2024-01-25] MEDS: PPN BAG #2 IV SCH (16:00)
[2024-01-26] VITALS (61 sets, daily range): BP systolic 121–167; BP diastolic 69–124; TEMP 97.5–98.2; O2SAT 94–98
[2024-01-26 06:47] LABS: BASOPHILS # (AUTO) 0.1 K/uL (0.0-0.2); BASOPHILS % (AUTO) 0.3 % (0.0-2.0); HEMATOCRIT 23 % (39-51); HEMOGLOBIN 7.6 g/dL (13.5-17.5); LYMPHOCYTES # (AUTO) 0.3 K/uL (0.8-4.8); LYMPHOCYTES % (AUTO) 1.8 % (20.0-44.0); MEAN CORPUSCULAR HEMOGLOBIN 30 PG (26.0-33.0); MEAN CORPUSCULAR HGB CONC 33 g/dl (31.0-36.0); MEAN CORPUSCULAR VOLUME 93 fL (80-96); MONOCYTES # (AUTO) 0.6 K/uL (0.1-1.30); MONOCYTES % (AUTO) 3.1 % (2.0-12.0); NEUTROPHILS # (AUTO) 17.7 K/uL (1.8-8.9); NEUTROPHILS % (AUTO) 94.8 % (43.0-81.0); PLATELET COUNT (AUTO) 221 K/uL (150-450); RED BLOOD CELL COUNT(AUTO) 2.51 MIL/uL (4.5-6.0); RED CELL DISTRIBUTION WIDTH 15.8 % (11.5-15.0); WHITE BLOOD COUNT (AUTO) 18.7 K/uL (4.3-11.0)
[2024-01-26 06:48] LABS: INR 1.25 (0.91-1.10); PARTIAL THROMBOPLASTIN TIME 24.8 SEC (24.3-34.3); PROTHROMBIN TIME 13.1 SECS (9.2-11.1)
[2024-01-26 07:01] LABS: CALCIUM, SERUM 7.6 mg/dL (8.5-10.1); CREATININE 5.7 mg/dL (0.6-1.3); MAGNESIUM 2.3 mg/dL (1.8-2.4); PHOSPHORUS 7.8 mg/dL (2.5-4.9); POTASSIUM 4.2 mmol/L (3.5-5.1)
[2024-01-26 07:08] LABS: D-DIMER 18.79 mg/L(FEU (0.17-0.50)
[2024-01-26] MEDS: MIDAZOLAM HCL 100 MG in IV NS 0.9% 80 ML IV PRN (09:12)
[2024-01-26] MEDS: AMIODARONE 150 MG in IV D5W 100 ML IV ONE (11:01)
[2024-01-26] MEDS: AMIODARONE 450 MG in IV D5W 241 ML IV PRN (11:16)
[2024-01-26] MEDS: FAT EMULSION 20% 500 ML in PREMIX 1 EA IV SCH (14:00)
[2024-01-26] MEDS: PPN BAG #3 IV SCH (16:13)
[2024-01-27] VITALS (67 sets, daily range): BP systolic 98–145; BP diastolic 55–111; TEMP 98.1–98.8; O2SAT 92–100
[2024-01-27 04:35] LABS: BASOPHILS % (AUTO) 0.1 % (0.0-2.0); EOSINOPHILS % (AUTO) 0.1 % (0.0-6.0); HEMATOCRIT 24 % (39-51); HEMOGLOBIN 8.2 g/dL (13.5-17.5); LYMPHOCYTES # (AUTO) 0.5 K/uL (0.8-4.8); LYMPHOCYTES % (AUTO) 2.1 % (20.0-44.0); MEAN CORPUSCULAR HEMOGLOBIN 31 PG (26.0-33.0); MEAN CORPUSCULAR HGB CONC 34 g/dl (31.0-36.0); MEAN CORPUSCULAR VOLUME 94 fL (80-96); MONOCYTES # (AUTO) 0.9 K/uL (0.1-1.30); MONOCYTES % (AUTO) 3.9 % (2.0-12.0); NEUTROPHILS # (AUTO) 21.3 K/uL (1.8-8.9); NEUTROPHILS % (AUTO) 93.8 % (43.0-81.0); PLATELET COUNT (AUTO) 275 K/uL (150-450); RED BLOOD CELL COUNT(AUTO) 2.61 MIL/uL (4.5-6.0); RED CELL DISTRIBUTION WIDTH 15.6 % (11.5-15.0); WHITE BLOOD COUNT (AUTO) 22.7 K/uL (4.3-11.0)
[2024-01-27 04:54] LABS: CALCIUM, SERUM 7.2 mg/dL (8.5-10.1); CREATININE 7.5 mg/dL (0.6-1.3); MAGNESIUM 2.4 mg/dL (1.8-2.4); POTASSIUM 4.1 mmol/L (3.5-5.1)
[2024-01-27 04:57] LABS: PHOSPHORUS 8.8 mg/dL (2.5-4.9)
[2024-01-27 05:06] LABS: FERRITIN 404 ng/mL (8-388)
[2024-01-27 06:15] LABS: IRON, SERUM 16 ug/dl (50-175); TOTAL IRON BINDING CAPACITY 199 ug/dl (250-450)
[2024-01-27 06:17] LABS: ANISOCYTOSIS 1+; LYMPHOCYTES % (MANUAL) 3 % (16-48); MONOCYTES % (MANUAL) 3 % (0-11.0); MYELOCYTES % 1 % (0-0); NEUTROPHILS % (MANUAL) 93 (42-76); PLATELET ESTIMATE ADEQUATE
[2024-01-27 14:37] LABS: D-DIMER 18.1 mg/L(FEU (0.17-0.50); INR 1.14 (0.91-1.10); PARTIAL THROMBOPLASTIN TIME 24.2 SEC (24.3-34.3)
[2024-01-27] MEDS ORDERED: PPN #4 IV SCH (17:54)
[2024-01-27] MEDS: PPN #4 IV SCH (18:06)
[2024-01-28] VITALS (57 sets, daily range): BP systolic 113–169; BP diastolic 69–144; TEMP 97.9–98.8; O2SAT 10–100
[2024-01-28 05:06] LABS: CALCIUM, SERUM 7.5 mg/dL (8.5-10.1); CREATININE 6.8 mg/dL (0.6-1.3); MAGNESIUM 2.4 mg/dL (1.8-2.4); POTASSIUM 4.4 mmol/L (3.5-5.1)
[2024-01-28 05:12] LABS: PHOSPHORUS 8.7 mg/dL (2.5-4.9)
[2024-01-28 05:42] LABS: INR 1.22 (0.91-1.10); PARTIAL THROMBOPLASTIN TIME 26.8 SEC (24.3-34.3); PROTHROMBIN TIME 12.8 SECS (9.2-11.1)
[2024-01-28 05:47] LABS: D-DIMER 16.19 mg/L(FEU (0.17-0.50)
[2024-01-28] MEDS: CEFEPIME 1 GM in IV D5W 50 ML IV SCH (08:16)
[2024-01-28] MEDS ORDERED: ETOMIDATE 2 MG/ML VIAL IV ONE (13:29)
[2024-01-28] MEDS: HYDROCORTISONE SOD SUCCINATE 100 MG/2 ML VIAL IV SCH (16:18)
[2024-01-28] MEDS: PRECEDEX 400 MCG/100 ML BOTTLE 100 ML IV PRN (17:08)
[2024-01-28] MEDS: LORAZEPAM INJ 2 MG/ML VIAL IV PRN (17:10)
[2024-01-28] MEDS: MIDAZOLAM HCL 100 MG in IV NS 0.9% 80 ML IV PRN (17:37)
[2024-01-29] VITALS (34 sets, daily range): BP systolic 92–163; BP diastolic 54–126; TEMP 97.4–97.9; O2SAT 97–100
[2024-01-29 04:12] LABS: METHYLMALONIC ACID 528 nmol/L (0-378)
[2024-01-29 05:08] LABS: CALCIUM, SERUM 7.9 mg/dL (8.5-10.1); CREATININE 6.1 mg/dL (0.6-1.3); MAGNESIUM 2.2 mg/dL (1.8-2.4); POTASSIUM 4.1 mmol/L (3.5-5.1)
[2024-01-29 16:00] LABS: ALBUMIN 1.5 g/dL (3.4-5.0); BILIRUBIN,TOTAL 2.8 mg/dL (0.2-1.0); CALCIUM, SERUM 7.1 mg/dL (8.5-10.1); CREATININE 6.7 mg/dL (0.6-1.3); POTASSIUM 4.1 mmol/L (3.5-5.1); TOTAL PROTEIN, SERUM 5.4 g/dL (6.4-8.2)
[2024-01-29] MEDS: HYDROCORTISONE SOD SUCCINATE 100 MG/2 ML VIAL IV SCH (16:10)
[2024-01-29] MEDS: AMIODARONE 150 MG in IV D5W 100 ML IV ONE (19:08)
[2024-01-29] MEDS: PPN BAG #5 IV SCH (19:41)
[2024-01-29] MEDS: AMIODARONE 450 MG in IV D5W 241 ML IV PRN (19:52)
[2024-01-30] VITALS (61 sets, daily range): BP systolic 118–153; BP diastolic 69–119; TEMP 97.6–98.2; O2SAT 99–100
[2024-01-30 05:01] LABS: EOSINOPHILS % (AUTO) 0.1 % (0.0-6.0); HEMATOCRIT 26 % (39-51); HEMOGLOBIN 8.4 g/dL (13.5-17.5); LYMPHOCYTES # (AUTO) 0.5 K/uL (0.8-4.8); LYMPHOCYTES % (AUTO) 2.4 % (20.0-44.0); MEAN CORPUSCULAR HEMOGLOBIN 30 PG (26.0-33.0); MEAN CORPUSCULAR HGB CONC 32 g/dl (31.0-36.0); MEAN CORPUSCULAR VOLUME 93 fL (80-96); MONOCYTES # (AUTO) 1.4 K/uL (0.1-1.30); NEUTROPHILS # (AUTO) 17.9 K/uL (1.8-8.9); NEUTROPHILS % (AUTO) 90.5 % (43.0-81.0); PLATELET COUNT (AUTO) 384 K/uL (150-450); RED BLOOD CELL COUNT(AUTO) 2.79 MIL/uL (4.5-6.0); RED CELL DISTRIBUTION WIDTH 15.6 % (11.5-15.0); WHITE BLOOD COUNT (AUTO) 19.8 K/uL (4.3-11.0)
[2024-01-30 05:19] LABS: CALCIUM, SERUM 7.6 mg/dL (8.5-10.1); CREATININE 5.2 mg/dL (0.6-1.3); PHOSPHORUS 5.7 mg/dL (2.5-4.9); POTASSIUM 3.7 mmol/L (3.5-5.1)
[2024-01-30] MEDS: PANTOPRAZOLE 40 MG VIAL IV SCH (13:04)
[2024-01-30] MEDS: IV NS 0.9% 250 ML IV PRN (22:00)
[2024-01-31] VITALS (57 sets, daily range): BP systolic 123–172; BP diastolic 75–113; TEMP 96.8–98; O2SAT 98–100
[2024-01-31 04:35] LABS: EOSINOPHILS # (AUTO) 0.1 K/uL (0.0-0.7); EOSINOPHILS % (AUTO) 0.8 % (0.0-6.0); HEMATOCRIT 26 % (39-51); HEMOGLOBIN 8.4 g/dL (13.5-17.5); LYMPHOCYTES # (AUTO) 0.9 K/uL (0.8-4.8); LYMPHOCYTES % (AUTO) 5.3 % (20.0-44.0); MEAN CORPUSCULAR HEMOGLOBIN 30 PG (26.0-33.0); MEAN CORPUSCULAR HGB CONC 32 g/dl (31.0-36.0); MEAN CORPUSCULAR VOLUME 92 fL (80-96); MONOCYTES # (AUTO) 1.3 K/uL (0.1-1.30); MONOCYTES % (AUTO) 7.3 % (2.0-12.0); NEUTROPHILS # (AUTO) 15.2 K/uL (1.8-8.9); NEUTROPHILS % (AUTO) 86.6 % (43.0-81.0); PLATELET COUNT (AUTO) 413 K/uL (150-450); RED BLOOD CELL COUNT(AUTO) 2.81 MIL/uL (4.5-6.0); WHITE BLOOD COUNT (AUTO) 17.6 K/uL (4.3-11.0)
[2024-01-31 05:04] LABS: INR 1.19 (0.91-1.10); PARTIAL THROMBOPLASTIN TIME 27.6 SEC (24.3-34.3); PROTHROMBIN TIME 12.5 SECS (9.2-11.1)
[2024-01-31 05:06] LABS: CALCIUM, SERUM 7.7 mg/dL (8.5-10.1); CREATININE 5.4 mg/dL (0.6-1.3); D-DIMER 10.45 mg/L(FEU (0.17-0.50); PHOSPHORUS 4.8 mg/dL (2.5-4.9); POTASSIUM 3.3 mmol/L (3.5-5.1)
[2024-01-31] MEDS: POTASSIUM CHLORIDE 20 MEQ POWDER PACKET NG SCH (08:49)
[2024-01-31] MEDS ORDERED: NEPRO 1,000 ML BOTTLE GT PRN (13:00)
[2024-01-31] MEDS: OLANZAPINE 5 MG TABLET PO SCH (16:40)
[2024-01-31] MEDS: NEPRO 1,000 ML BOTTLE GT PRN (18:14)
[2024-01-31] MEDS: METOPROLOL TARTRATE 25 MG TABLET GT SCH (20:07)
[2024-02-01] VITALS (67 sets, daily range): BP systolic 92–179; BP diastolic 53–104; TEMP 96.8–97.4; O2SAT 95–100
[2024-02-01 05:43] LABS: BASOPHILS % (AUTO) 0.2 % (0.0-2.0); EOSINOPHILS % (AUTO) 0.1 % (0.0-6.0); HEMATOCRIT 25 % (39-51); HEMOGLOBIN 8.4 g/dL (13.5-17.5); LYMPHOCYTES # (AUTO) 0.4 K/uL (0.8-4.8); LYMPHOCYTES % (AUTO) 2.8 % (20.0-44.0); MEAN CORPUSCULAR HEMOGLOBIN 30 PG (26.0-33.0); MEAN CORPUSCULAR HGB CONC 33 g/dl (31.0-36.0); MEAN CORPUSCULAR VOLUME 92 fL (80-96); MONOCYTES # (AUTO) 1.1 K/uL (0.1-1.30); MONOCYTES % (AUTO) 7.3 % (2.0-12.0); NEUTROPHILS % (AUTO) 89.6 % (43.0-81.0); PLATELET COUNT (AUTO) 364 K/uL (150-450); RED BLOOD CELL COUNT(AUTO) 2.77 MIL/uL (4.5-6.0); RED CELL DISTRIBUTION WIDTH 15.1 % (11.5-15.0); WHITE BLOOD COUNT (AUTO) 14.5 K/uL (4.3-11.0)
[2024-02-01 05:57] LABS: CALCIUM, SERUM 7.4 mg/dL (8.5-10.1); CREATININE 5.1 mg/dL (0.6-1.3); MAGNESIUM 2.1 mg/dL (1.8-2.4); PHOSPHORUS 5.4 mg/dL (2.5-4.9); POTASSIUM 3.7 mmol/L (3.5-5.1)
[2024-02-01 06:28] LABS: INR 1.19 (0.91-1.10); PARTIAL THROMBOPLASTIN TIME 28.5 SEC (24.3-34.3); PROTHROMBIN TIME 12.5 SECS (9.2-11.1)
[2024-02-01 06:29] LABS: D-DIMER 8.13 mg/L(FEU (0.17-0.50)
[2024-02-01 10:58] LABS: BILIRUBIN,TOTAL 2.9 mg/dL (0.2-1.0); CALCIUM, SERUM 7.4 mg/dL (8.5-10.1); CREATININE 5.5 mg/dL (0.6-1.3); POTASSIUM 3.7 mmol/L (3.5-5.1); TOTAL PROTEIN, SERUM 5.2 g/dL (6.4-8.2)
[2024-02-01 11:02] LABS: ALBUMIN 1.3 g/dL (3.4-5.0)
[2024-02-01] MEDS: DIGOXIN INJ 0.5 MG/2 ML AMPUL IV SCH (11:08)
[2024-02-02] VITALS (54 sets, daily range): BP systolic 104–183; BP diastolic 54–123; TEMP 97–98.6; O2SAT 96–100
[2024-02-02] MEDS: hydrALAZINE HCL IV 20 MG VIAL IV PRN (01:27)
[2024-02-02 05:02] LABS: BASOPHILS % (AUTO) 0.3 % (0.0-2.0); EOSINOPHILS % (AUTO) 0.3 % (0.0-6.0); HEMATOCRIT 24 % (39-51); HEMOGLOBIN 7.9 g/dL (13.5-17.5); LYMPHOCYTES # (AUTO) 0.7 K/uL (0.8-4.8); MEAN CORPUSCULAR HEMOGLOBIN 30 PG (26.0-33.0); MEAN CORPUSCULAR HGB CONC 33 g/dl (31.0-36.0); MEAN CORPUSCULAR VOLUME 92 fL (80-96); MONOCYTES # (AUTO) 1.4 K/uL (0.1-1.30); MONOCYTES % (AUTO) 7.9 % (2.0-12.0); NEUTROPHILS # (AUTO) 15.2 K/uL (1.8-8.9); NEUTROPHILS % (AUTO) 87.5 % (43.0-81.0); PLATELET COUNT (AUTO) 383 K/uL (150-450); RED BLOOD CELL COUNT(AUTO) 2.64 MIL/uL (4.5-6.0); RED CELL DISTRIBUTION WIDTH 14.8 % (11.5-15.0); WHITE BLOOD COUNT (AUTO) 17.3 K/uL (4.3-11.0)
[2024-02-02 05:11] LABS: INR 1.17 (0.91-1.10); PARTIAL THROMBOPLASTIN TIME 26.9 SEC (24.3-34.3); PROTHROMBIN TIME 12.3 SECS (9.2-11.1)
[2024-02-02 05:16] LABS: D-DIMER 11.63 mg/L(FEU (0.17-0.50)
[2024-02-02 05:21] LABS: CALCIUM, SERUM 7.4 mg/dL (8.5-10.1); CREATININE 5.3 mg/dL (0.6-1.3); MAGNESIUM 1.9 mg/dL (1.8-2.4); POTASSIUM 3.4 mmol/L (3.5-5.1)
[2024-02-02 10:30] LABS: ABG BASE EXCESS 1.5 mmol/L (-2.0-3.0); ABG OXYGEN SATURATION 98.8 % (94.0-98.0); ABG PCO2 32.8 mmHg (35.0-48.0); ABG PH 7.493 (7.350-7.450); ABG PO2 141.1 mmHg (83.0-108.0); ABG TOTAL HEMOGLOBIN 8.8 G/dL (13.5-17.5); COHb 0.4 % (0.5-1.5); MetHb 0.2 % (0.0-1.5); O2Hb 98.2 % (94.0-97.0); PEEP,BG 5 cm H2O; SITE, ABG RIGHT RADIAL; VT, ABG 500 mL
[2024-02-03] VITALS (31 sets, daily range): BP systolic 134–164; BP diastolic 71–103; TEMP 98–99.2; O2SAT 93–100
[2024-02-03 04:51] LABS: BASOPHILS # (AUTO) 0.1 K/uL (0.0-0.2); BASOPHILS % (AUTO) 0.4 % (0.0-2.0); EOSINOPHILS # (AUTO) 0.1 K/uL (0.0-0.7); EOSINOPHILS % (AUTO) 0.4 % (0.0-6.0); HEMATOCRIT 23 % (39-51); HEMOGLOBIN 7.6 g/dL (13.5-17.5); LYMPHOCYTES # (AUTO) 0.6 K/uL (0.8-4.8); LYMPHOCYTES % (AUTO) 3.2 % (20.0-44.0); MEAN CORPUSCULAR HEMOGLOBIN 31 PG (26.0-33.0); MEAN CORPUSCULAR HGB CONC 33 g/dl (31.0-36.0); MEAN CORPUSCULAR VOLUME 94 fL (80-96); MONOCYTES # (AUTO) 1.6 K/uL (0.1-1.30); NEUTROPHILS # (AUTO) 15.5 K/uL (1.8-8.9); PLATELET COUNT (AUTO) 311 K/uL (150-450); RED BLOOD CELL COUNT(AUTO) 2.48 MIL/uL (4.5-6.0); WHITE BLOOD COUNT (AUTO) 17.8 K/uL (4.3-11.0)
[2024-02-03 04:59] LABS: CALCIUM, SERUM 7.6 mg/dL (8.5-10.1); CREATININE 5.5 mg/dL (0.6-1.3); MAGNESIUM 1.8 mg/dL (1.8-2.4); POTASSIUM 3.5 mmol/L (3.5-5.1)
[2024-02-03 05:09] LABS: INR 1.13 (0.91-1.10); PARTIAL THROMBOPLASTIN TIME 27.6 SEC (24.3-34.3); PROTHROMBIN TIME 11.9 SECS (9.2-11.1)
[2024-02-03 05:11] LABS: D-DIMER 14.95 mg/L(FEU (0.17-0.50)
[2024-02-03] MEDS: PANTOPRAZOLE 40 MG/PACK PACK NG SCH (08:26)
[2024-02-03] MEDS: ACETYLCYSTEINE 10% SOLN 400 MG/4 ML VIAL NEB SCH (12:30)
[2024-02-03] MEDS: IPRATROPIUM NEB FS 0.5 MG/2.5 ML AMPUL.NEB NEB SCH (12:32)
[2024-02-03 14:33] LABS: ABG BASE EXCESS 3.1 mmol/L (-2.0-3.0); ABG PCO2 53.7 mmHg (35.0-48.0); ABG PH 7.354 (7.350-7.450); ABG PO2 89.4 mmHg (83.0-108.0); ABG TOTAL HEMOGLOBIN 8.6 G/dL (13.5-17.5); COHb 0.5 % (0.5-1.5); MetHb 0.1 % (0.0-1.5); O2Hb 95.4 % (94.0-97.0)
[2024-02-03 19:26] LABS: ABG BASE EXCESS 2.3 mmol/L (-2.0-3.0); ABG OXYGEN SATURATION 93.4 % (94.0-98.0); ABG PCO2 54.2 mmHg (35.0-48.0); ABG PO2 73.2 mmHg (83.0-108.0); ABG TOTAL HEMOGLOBIN 8.5 G/dL (13.5-17.5); COHb 0.3 % (0.5-1.5); MetHb 0.4 % (0.0-1.5); O2Hb 92.7 % (94.0-97.0); SITE, ABG RIGHT RADIAL
[2024-02-04] VITALS (28 sets, daily range): BP systolic 128–152; BP diastolic 62–93; TEMP 97.7–99.3; O2SAT 90–100
[2024-02-04 04:44] LABS: BASOPHILS # (AUTO) 0.1 K/uL (0.0-0.2); BASOPHILS % (AUTO) 0.5 % (0.0-2.0); EOSINOPHILS # (AUTO) 0.1 K/uL (0.0-0.7); EOSINOPHILS % (AUTO) 0.6 % (0.0-6.0); HEMATOCRIT 23 % (39-51); HEMOGLOBIN 7.2 g/dL (13.5-17.5); LYMPHOCYTES # (AUTO) 0.8 K/uL (0.8-4.8); LYMPHOCYTES % (AUTO) 4.5 % (20.0-44.0); MEAN CORPUSCULAR HEMOGLOBIN 29 PG (26.0-33.0); MEAN CORPUSCULAR HGB CONC 31 g/dl (31.0-36.0); MEAN CORPUSCULAR VOLUME 94 fL (80-96); MONOCYTES # (AUTO) 1.4 K/uL (0.1-1.30); MONOCYTES % (AUTO) 7.3 % (2.0-12.0); NEUTROPHILS # (AUTO) 16.2 K/uL (1.8-8.9); NEUTROPHILS % (AUTO) 87.1 % (43.0-81.0); PLATELET COUNT (AUTO) 253 K/uL (150-450); RED BLOOD CELL COUNT(AUTO) 2.47 MIL/uL (4.5-6.0); RED CELL DISTRIBUTION WIDTH 15.1 % (11.5-15.0); WHITE BLOOD COUNT (AUTO) 18.7 K/uL (4.3-11.0)
[2024-02-04 05:02] LABS: CALCIUM, SERUM 7.9 mg/dL (8.5-10.1); CREATININE 7.1 mg/dL (0.6-1.3); MAGNESIUM 2.1 mg/dL (1.8-2.4); POTASSIUM 4.5 mmol/L (3.5-5.1)
[2024-02-04 05:05] LABS: INR 1.14 (0.91-1.10); PARTIAL THROMBOPLASTIN TIME 28.3 SEC (24.3-34.3)
[2024-02-04 05:14] LABS: D-DIMER 8.74 mg/L(FEU (0.17-0.50)
[2024-02-04 09:42] LABS: ABG BASE EXCESS 4.8 mmol/L (-2.0-3.0); ABG PCO2 64.2 mmHg (35.0-48.0); ABG PH 7.315 (7.350-7.450); ABG PO2 45.9 mmHg (83.0-108.0); ABG TOTAL HEMOGLOBIN 8.6 G/dL (13.5-17.5); COHb 0.6 % (0.5-1.5); MetHb 0.1 % (0.0-1.5); O2Hb 78.4 % (94.0-97.0); SITE, ABG RIGHT RADIAL
[2024-02-05] VITALS (30 sets, daily range): BP systolic 92–179; BP diastolic 40–128; TEMP 97.8–98.1; O2SAT 90–100
[2024-02-05 04:23] LABS: BASOPHILS % (AUTO) 0.3 % (0.0-2.0); EOSINOPHILS % (AUTO) 0.2 % (0.0-6.0); HEMATOCRIT 22 % (39-51); HEMOGLOBIN 7.2 g/dL (13.5-17.5); LYMPHOCYTES # (AUTO) 0.5 K/uL (0.8-4.8); LYMPHOCYTES % (AUTO) 2.9 % (20.0-44.0); MEAN CORPUSCULAR HEMOGLOBIN 31 PG (26.0-33.0); MEAN CORPUSCULAR HGB CONC 32 g/dl (31.0-36.0); MEAN CORPUSCULAR VOLUME 95 fL (80-96); MONOCYTES # (AUTO) 1.1 K/uL (0.1-1.30); MONOCYTES % (AUTO) 6.1 % (2.0-12.0); NEUTROPHILS # (AUTO) 16.7 K/uL (1.8-8.9); NEUTROPHILS % (AUTO) 90.5 % (43.0-81.0); PLATELET COUNT (AUTO) 205 K/uL (150-450); RED BLOOD CELL COUNT(AUTO) 2.36 MIL/uL (4.5-6.0); WHITE BLOOD COUNT (AUTO) 18.4 K/uL (4.3-11.0)
[2024-02-05 04:38] LABS: CALCIUM, SERUM 8.2 mg/dL (8.5-10.1); CREATININE 6.6 mg/dL (0.6-1.3); POTASSIUM 4.5 mmol/L (3.5-5.1)
[2024-02-05 04:39] LABS: PHOSPHORUS 7.2 mg/dL (2.5-4.9)
[2024-02-05] MEDS: PROPOFOL 100 ML IV PRN (10:01)
[2024-02-05] MEDS ORDERED: ETOMIDATE 2 MG/ML VIAL IV ONE (11:21)
[2024-02-05] MEDS: PIPERCILLIN/TAZOBACTAM 2.25GM/D5W 50MLPB IV ONE (21:42)
[2024-02-05] MEDS: PIPERACILLIN /TAZOBACTAM 2.25 G in IV D5W 50 ML IV SCH (21:44)
[2024-02-06] VITALS (45 sets, daily range): BP systolic 98–160; BP diastolic 46–101; TEMP 97.4–98.6; O2SAT 99–100
[2024-02-06 05:07] LABS: BASOPHILS # (AUTO) 0.1 K/uL (0.0-0.2); EOSINOPHILS # (AUTO) 0.2 K/uL (0.0-0.7); EOSINOPHILS % (AUTO) 1.8 % (0.0-6.0); MEAN CORPUSCULAR HEMOGLOBIN 30 PG (26.0-33.0); MEAN CORPUSCULAR HGB CONC 33 g/dl (31.0-36.0); MEAN CORPUSCULAR VOLUME 91 fL (80-96); MONOCYTES # (AUTO) 0.8 K/uL (0.1-1.30); MONOCYTES % (AUTO) 6.1 % (2.0-12.0); NEUTROPHILS # (AUTO) 10.8 K/uL (1.8-8.9); NEUTROPHILS % (AUTO) 83.1 % (43.0-81.0); PLATELET COUNT (AUTO) 159 K/uL (150-450); RED BLOOD CELL COUNT(AUTO) 2.12 MIL/uL (4.5-6.0); RED CELL DISTRIBUTION WIDTH 14.4 % (11.5-15.0)
[2024-02-06] MEDS: PIPERCILLIN/TAZOBACTAM 2.25GM/D5W 50MLPB IV ONE (05:12)
[2024-02-06 05:17] LABS: CALCIUM, SERUM 7.6 mg/dL (8.5-10.1); CREATININE 5.9 mg/dL (0.6-1.3); POTASSIUM 3.4 mmol/L (3.5-5.1)
[2024-02-06 05:33] LABS: PHOSPHORUS 3.9 mg/dL (2.5-4.9)
[2024-02-06 05:34] LABS: HEMATOCRIT 19 % (39-51); HEMOGLOBIN 6.4 g/dL (13.5-17.5)
[2024-02-06 05:48] LABS: D-DIMER 3.92 mg/L(FEU (0.17-0.50); INR 1.17 (0.91-1.10); PARTIAL THROMBOPLASTIN TIME 29.1 SEC (24.3-34.3); PROTHROMBIN TIME 12.3 SECS (9.2-11.1)
[2024-02-06 07:34] LABS: EOSINOPHILS % (MANUAL) 1 % (0-4); LYMPHOCYTES % (MANUAL) 7 % (16-48); MONOCYTES % (MANUAL) 3 % (0-11.0); NEUTROPHILS % (MANUAL) 89 (42-76); PLATELET ESTIMATE ADEQUATE
[2024-02-06] MEDS: METOPROLOL TARTRATE INJ 5 MG/5 ML AMPUL IVP STA (09:02)
[2024-02-06] MEDS: diphenhydrAMINE HCL 50 MG/ML VIAL IV ONE (11:00)
[2024-02-06] MEDS: PIPERACILLIN /TAZOBACTAM 2.25 G in IV D5W 50 ML IV SCH (12:06)
[2024-02-06 16:07] LABS: ABG BASE EXCESS 3.2 mmol/L (-2.0-3.0); ABG OXYGEN SATURATION 99.3 % (94.0-98.0); ABG PCO2 70.4 mmHg (35.0-48.0); ABG PH 7.265 (7.350-7.450); ABG PO2 200.8 mmHg (83.0-108.0); COHb 0.1 % (0.5-1.5); MetHb 0.2 % (0.0-1.5)
[2024-02-06 16:07] LABS: ABG BASE EXCESS 1.2 mmol/L (-2.0-3.0); ABG OXYGEN SATURATION 99.8 % (94.0-98.0); ABG PCO2 40.2 mmHg (35.0-48.0); ABG PH 7.424 (7.350-7.450); ABG TOTAL HEMOGLOBIN 8.1 G/dL (13.5-17.5); COHb 0.3 % (0.5-1.5); MetHb 0.3 % (0.0-1.5); O2Hb 99.2 % (94.0-97.0); PEEP,BG 0 cm H2O; SITE, ABG RIGHT RADIAL; VT, ABG 450 mL
[2024-02-06 16:07] LABS: ABG BASE EXCESS 7.2 mmol/L (-2.0-3.0); ABG OXYGEN SATURATION 98.8 % (94.0-98.0); ABG PCO2 34.9 mmHg (35.0-48.0); ABG PH 7.553 (7.350-7.450); ABG PO2 145.5 mmHg (83.0-108.0); ABG TOTAL HEMOGLOBIN 7.4 G/dL (13.5-17.5); COHb 0.3 % (0.5-1.5); MetHb 0.3 % (0.0-1.5); O2Hb 98.2 % (94.0-97.0); PEEP,BG 0 cm H2O; SITE, ABG UC; VT, ABG 450 mL
[2024-02-07] VITALS (39 sets, daily range): BP systolic 86–168; BP diastolic 58–126; TEMP 97.3–98.7; O2SAT 96–100
[2024-02-07 02:24] LABS: APPEARANCE,URINE TURBID (CLEAR); BILIRUBIN,URINE NEGATIVE (NEGATIVE); BLOOD, URINE 3+ Ery/uL (NEGATIVE); COLOR,URINE YELLOW (YELLOW); KETONES,URINE NEGATIVE (NEGATIVE); LEUKOCYTE ESTERASE ,URINE 2+ (NEGATIVE); NITRITE, URINE NEGATIVE (NEGATIVE); PROTEIN,URINE 2+ mg/dl (NEGATIVE); UGLUCOSE NEGATIVE (NEGATIVE); UROBILINOGEN,URINE 0.2 EU/dL (0.2)
[2024-02-07 02:30] LABS: ADD URINE CULTURE YES; BACTERIA,URINE Moderate /HPF (None Seen); SQUAMOUS EPITHELIAL CELL,UR Rare /HPF (None Seen); WBC,URINE TOO NUMEROUS TO COUN /HPF (0-3); YEAST,URINE Moderate /HPF (None Seen)
[2024-02-07 04:28] LABS: CALCIUM, SERUM 7.7 mg/dL (8.5-10.1); CREATININE 5.3 mg/dL (0.6-1.3); POTASSIUM 3.6 mmol/L (3.5-5.1)
[2024-02-07 07:26] LABS: BASOPHILS # (AUTO) 0.1 K/uL (0.0-0.2); BASOPHILS % (AUTO) 0.5 % (0.0-2.0); EOSINOPHILS % (AUTO) 0.4 % (0.0-6.0); HEMATOCRIT 23 % (39-51); HEMOGLOBIN 7.7 g/dL (13.5-17.5); LYMPHOCYTES # (AUTO) 0.5 K/uL (0.8-4.8); LYMPHOCYTES % (AUTO) 4.7 % (20.0-44.0); MEAN CORPUSCULAR HEMOGLOBIN 31 PG (26.0-33.0); MEAN CORPUSCULAR HGB CONC 34 g/dl (31.0-36.0); MEAN CORPUSCULAR VOLUME 91 fL (80-96); MONOCYTES # (AUTO) 0.7 K/uL (0.1-1.30); MONOCYTES % (AUTO) 5.8 % (2.0-12.0); NEUTROPHILS # (AUTO) 10.1 K/uL (1.8-8.9); NEUTROPHILS % (AUTO) 88.6 % (43.0-81.0); PLATELET COUNT (AUTO) 160 K/uL (150-450); RED BLOOD CELL COUNT(AUTO) 2.49 MIL/uL (4.5-6.0); RED CELL DISTRIBUTION WIDTH 14.2 % (11.5-15.0); WHITE BLOOD COUNT (AUTO) 11.4 K/uL (4.3-11.0)
[2024-02-07 08:14] LABS: ABG BASE EXCESS 7.4 mmol/L (-2.0-3.0); ABG OXYGEN SATURATION 99.1 % (94.0-98.0); ABG PCO2 46.9 mmHg (35.0-48.0); ABG PH 7.453 (7.350-7.450); ABG PO2 155.3 mmHg (83.0-108.0); ABG TOTAL HEMOGLOBIN 8.2 G/dL (13.5-17.5); COHb 0.4 % (0.5-1.5); MetHb 0.1 % (0.0-1.5); O2Hb 98.6 % (94.0-97.0); PEEP,BG 0 cm H2O; SITE, ABG RIGHT RADIAL; VT, ABG 450 mL
[2024-02-07] MEDS ORDERED: IOHEXOL-350 100 ML VIAL IV ONE (08:34)
[2024-02-07] MEDS ORDERED: IV NS 0.9% 250 ML IV ONE (08:35)
[2024-02-07] MEDS ORDERED: IOHEXOL 0 ML IV ONE (10:35)
[2024-02-07] MEDS ORDERED: HEPARIN SODIUM, PORCINE 1,000 UNIT/ML VIAL ONE (10:35)
[2024-02-07] MEDS ORDERED: LIDOCAINE 1% INJ 50 ML MDV IJ ONE (10:36)
[2024-02-07] MEDS: ADENOSINE 6 MG/2 ML VIAL IVP ONE (13:21)
[2024-02-07] MEDS ORDERED: SOTALOL AF 80 MG TABLET PO SCH (15:30)
[2024-02-07] MEDS: NOREPINEPHRINE 8 MG in IV D5W 250ML IV PRN (16:41)
[2024-02-07] MEDS: SOTALOL HCL 80 MG TABLET PO SCH (16:43)
[2024-02-08] VITALS (34 sets, daily range): BP systolic 94–155; BP diastolic 57–121; TEMP 96.9–97.8; O2SAT 96–100
[2024-02-08 04:58] LABS: CALCIUM, SERUM 8.1 mg/dL (8.5-10.1); CREATININE 4.9 mg/dL (0.6-1.3)
[2024-02-08 08:33] LABS: ABG BASE EXCESS 2.9 mmol/L (-2.0-3.0); ABG OXYGEN SATURATION 98.4 % (94.0-98.0); ABG PCO2 44.2 mmHg (35.0-48.0); ABG PH 7.417 (7.350-7.450); ABG TOTAL HEMOGLOBIN 9.6 G/dL (13.5-17.5); COHb 0.3 % (0.5-1.5); MetHb 0.3 % (0.0-1.5); O2Hb 97.8 % (94.0-97.0); PEEP,BG 0 cm H2O; VT, ABG 450 mL
[2024-02-08 09:58] LABS: BASOPHILS # (AUTO) 0.1 K/uL (0.0-0.2); BASOPHILS % (AUTO) 0.7 % (0.0-2.0); EOSINOPHILS # (AUTO) 0.3 K/uL (0.0-0.7); EOSINOPHILS % (AUTO) 1.6 % (0.0-6.0); HEMATOCRIT 26 % (39-51); HEMOGLOBIN 8.6 g/dL (13.5-17.5); LYMPHOCYTES # (AUTO) 0.7 K/uL (0.8-4.8); LYMPHOCYTES % (AUTO) 4.3 % (20.0-44.0); MEAN CORPUSCULAR HEMOGLOBIN 30 PG (26.0-33.0); MEAN CORPUSCULAR HGB CONC 33 g/dl (31.0-36.0); MEAN CORPUSCULAR VOLUME 91 fL (80-96); MONOCYTES # (AUTO) 1.1 K/uL (0.1-1.30); NEUTROPHILS # (AUTO) 13.2 K/uL (1.8-8.9); NEUTROPHILS % (AUTO) 86.4 % (43.0-81.0); PLATELET COUNT (AUTO) 157 K/uL (150-450); RED BLOOD CELL COUNT(AUTO) 2.82 MIL/uL (4.5-6.0); RED CELL DISTRIBUTION WIDTH 14.5 % (11.5-15.0); WHITE BLOOD COUNT (AUTO) 15.3 K/uL (4.3-11.0)
[2024-02-09] VITALS (37 sets, daily range): BP systolic 80–154; BP diastolic 56–98; TEMP 97.4–98.4; O2SAT 96–100
[2024-02-09 05:06] LABS: BASOPHILS # (AUTO) 0.2 K/uL (0.0-0.2); EOSINOPHILS # (AUTO) 0.3 K/uL (0.0-0.7); EOSINOPHILS % (AUTO) 2.1 % (0.0-6.0); HEMATOCRIT 26 % (39-51); HEMOGLOBIN 8.8 g/dL (13.5-17.5); LYMPHOCYTES # (AUTO) 1.2 K/uL (0.8-4.8); LYMPHOCYTES % (AUTO) 7.8 % (20.0-44.0); MEAN CORPUSCULAR HEMOGLOBIN 30 PG (26.0-33.0); MEAN CORPUSCULAR HGB CONC 33 g/dl (31.0-36.0); MEAN CORPUSCULAR VOLUME 91 fL (80-96); MONOCYTES # (AUTO) 0.9 K/uL (0.1-1.30); MONOCYTES % (AUTO) 5.5 % (2.0-12.0); NEUTROPHILS # (AUTO) 13.2 K/uL (1.8-8.9); NEUTROPHILS % (AUTO) 83.6 % (43.0-81.0); PLATELET COUNT (AUTO) 171 K/uL (150-450); RED BLOOD CELL COUNT(AUTO) 2.91 MIL/uL (4.5-6.0); RED CELL DISTRIBUTION WIDTH 14.4 % (11.5-15.0); WHITE BLOOD COUNT (AUTO) 15.8 K/uL (4.3-11.0)
[2024-02-09 05:24] LABS: CALCIUM, SERUM 7.9 mg/dL (8.5-10.1); CREATININE 4.9 mg/dL (0.6-1.3); POTASSIUM 3.5 mmol/L (3.5-5.1)
[2024-02-09] MEDS: DIGOXIN INJ 0.5 MG/2 ML AMPUL IV ONE (08:36)
[2024-02-09] MEDS: BISACODYL SUPP (10 MG) 10 MG/SUPP.RECT SUPP.RECT RC PRN (10:20)
[2024-02-09] MEDS: DIGOXIN INJ 0.5 MG/2 ML AMPUL IV SCH (12:36)
[2024-02-09] MEDS ORDERED: FLUCONAZOLE IN NS 100 ML IV ONE (22:25)
[2024-02-09] MEDS: FLUCONAZOLE IN NS 100 MG in PREMIX 1 EA IV SCH (22:44)
[2024-02-10] VITALS (24 sets, daily range): BP systolic 105–163; BP diastolic 63–118; TEMP 97.2–97.8; O2SAT 97–100
[2024-02-10 04:29] LABS: BASOPHILS # (AUTO) 0.1 K/uL (0.0-0.2); BASOPHILS % (AUTO) 0.8 % (0.0-2.0); EOSINOPHILS # (AUTO) 0.3 K/uL (0.0-0.7); EOSINOPHILS % (AUTO) 2.3 % (0.0-6.0); HEMATOCRIT 22 % (39-51); HEMOGLOBIN 7.5 g/dL (13.5-17.5); LYMPHOCYTES % (AUTO) 7.7 % (20.0-44.0); MEAN CORPUSCULAR HEMOGLOBIN 31 PG (26.0-33.0); MEAN CORPUSCULAR HGB CONC 34 g/dl (31.0-36.0); MEAN CORPUSCULAR VOLUME 91 fL (80-96); MONOCYTES # (AUTO) 0.6 K/uL (0.1-1.30); MONOCYTES % (AUTO) 4.8 % (2.0-12.0); NEUTROPHILS # (AUTO) 11.2 K/uL (1.8-8.9); NEUTROPHILS % (AUTO) 84.4 % (43.0-81.0); PLATELET COUNT (AUTO) 159 K/uL (150-450); RED BLOOD CELL COUNT(AUTO) 2.46 MIL/uL (4.5-6.0); RED CELL DISTRIBUTION WIDTH 14.6 % (11.5-15.0); WHITE BLOOD COUNT (AUTO) 13.2 K/uL (4.3-11.0)
[2024-02-10 04:35] LABS: CALCIUM, SERUM 7.7 mg/dL (8.5-10.1); CREATININE 6.4 mg/dL (0.6-1.3); POTASSIUM 3.9 mmol/L (3.5-5.1)
[2024-02-10 05:06] LABS: BILIRUBIN,DIRECT 0.9 mg/dL (0.0-0.2); BILIRUBIN,TOTAL 1.2 mg/dL (0.2-1.0)
[2024-02-10 05:15] LABS: ALBUMIN 1.4 g/dL (3.4-5.0)
[2024-02-10] MEDS: DEXTROSE 50%-WATER 50 ML DISP.SYRIN IV PRN (06:15)
[2024-02-10] MEDS: DOCUSATE SODIUM LIQ 100 MG/10 ML UDC NG SCH (10:03)
[2024-02-10 15:54] LABS: HEMOGLOBIN 7.9 g/dL (13.5-17.5)
[2024-02-10] MEDS: FLUCONAZOLE IN NS 100 MG in PREMIX 1 EA IV SCH (19:33)
[2024-02-11] VITALS (25 sets, daily range): BP systolic 117–155; BP diastolic 65–106; TEMP 97.4–98.7; O2SAT 95–100
[2024-02-11 04:39] LABS: BASOPHILS # (AUTO) 0.1 K/uL (0.0-0.2); EOSINOPHILS # (AUTO) 0.3 K/uL (0.0-0.7); EOSINOPHILS % (AUTO) 2.3 % (0.0-6.0); HEMATOCRIT 22 % (39-51); HEMOGLOBIN 7.4 g/dL (13.5-17.5); LYMPHOCYTES # (AUTO) 0.9 K/uL (0.8-4.8); LYMPHOCYTES % (AUTO) 6.9 % (20.0-44.0); MEAN CORPUSCULAR HEMOGLOBIN 30 PG (26.0-33.0); MEAN CORPUSCULAR HGB CONC 33 g/dl (31.0-36.0); MEAN CORPUSCULAR VOLUME 91 fL (80-96); MONOCYTES # (AUTO) 0.6 K/uL (0.1-1.30); NEUTROPHILS % (AUTO) 84.8 % (43.0-81.0); PLATELET COUNT (AUTO) 192 K/uL (150-450); RED BLOOD CELL COUNT(AUTO) 2.47 MIL/uL (4.5-6.0); RED CELL DISTRIBUTION WIDTH 14.2 % (11.5-15.0)
[2024-02-11 04:49] LABS: CALCIUM, SERUM 7.9 mg/dL (8.5-10.1); CREATININE 5.3 mg/dL (0.6-1.3); MAGNESIUM 2.2 mg/dL (1.8-2.4); PHOSPHORUS 5.7 mg/dL (2.5-4.9); POTASSIUM 3.5 mmol/L (3.5-5.1)
[2024-02-11 05:00] LABS: D-DIMER 3.42 mg/L(FEU (0.17-0.50); INR 1.08 (0.91-1.10); PARTIAL THROMBOPLASTIN TIME 26.8 SEC (24.3-34.3); PROTHROMBIN TIME 11.4 SECS (9.2-11.1)
[2024-02-12] VITALS (32 sets, daily range): BP systolic 105–178; BP diastolic 64–130; TEMP 97.8–98.5; O2SAT 98–100
[2024-02-12] MEDS: VANCOMYCIN 1 GM /D5W 250 ML PB IV ONE (01:29)
[2024-02-12 04:44] LABS: BASOPHILS # (AUTO) 0.1 K/uL (0.0-0.2); BASOPHILS % (AUTO) 0.9 % (0.0-2.0); EOSINOPHILS # (AUTO) 0.3 K/uL (0.0-0.7); EOSINOPHILS % (AUTO) 2.5 % (0.0-6.0); HEMATOCRIT 23 % (39-51); LYMPHOCYTES # (AUTO) 1.1 K/uL (0.8-4.8); LYMPHOCYTES % (AUTO) 8.2 % (20.0-44.0); MEAN CORPUSCULAR HEMOGLOBIN 31 PG (26.0-33.0); MEAN CORPUSCULAR HGB CONC 35 g/dl (31.0-36.0); MEAN CORPUSCULAR VOLUME 91 fL (80-96); MONOCYTES # (AUTO) 0.7 K/uL (0.1-1.30); MONOCYTES % (AUTO) 5.4 % (2.0-12.0); NEUTROPHILS # (AUTO) 10.7 K/uL (1.8-8.9); PLATELET COUNT (AUTO) 250 K/uL (150-450); RED BLOOD CELL COUNT(AUTO) 2.55 MIL/uL (4.5-6.0); RED CELL DISTRIBUTION WIDTH 14.6 % (11.5-15.0); WHITE BLOOD COUNT (AUTO) 12.9 K/uL (4.3-11.0)
[2024-02-12 04:50] LABS: CALCIUM, SERUM 7.9 mg/dL (8.5-10.1); CREATININE 4.9 mg/dL (0.6-1.3); MAGNESIUM 1.9 mg/dL (1.8-2.4); PHOSPHORUS 4.7 mg/dL (2.5-4.9)
[2024-02-12 04:54] LABS: INR 1.04 (0.91-1.10)
[2024-02-12 04:55] LABS: D-DIMER 5.64 mg/L(FEU (0.17-0.50)
[2024-02-12 05:06] LABS: POTASSIUM 3.4 mmol/L (3.5-5.1)
[2024-02-12 13:08] LABS: CHROMOGRANIN A 321.5 ng/mL (0.0-101.8)
[2024-02-12] MEDS ORDERED: NOREPINEPHRINE 4 MG/4 ML AMPUL IV ONE (13:46)
[2024-02-12] MEDS ORDERED: EPINEPHRINE (1:10,000) SYRINGE 1 MG/10 ML DISP.SYRIN ONE (13:46)
[2024-02-12] MEDS ORDERED: CALCIUM CHLORIDE 1,000 MG/10 ML DISP.SYRIN ONE (13:46)
[2024-02-12] MEDS ORDERED: ATROPINE SULFATE 1 MG/10 ML DISP.SYRIN ONE (13:47)
[2024-02-12] MEDS ORDERED: ROCURONIUM BROMIDE 50 MG/5 ML ONE (13:47)
[2024-02-12] MEDS ORDERED: METOPROLOL TARTRATE INJ 5 MG/5 ML AMPUL ONE (13:56)
[2024-02-12] MEDS ORDERED: VERAPAMIL HCL IV 5 MG/2 ML VIAL ONE (13:58)
[2024-02-12] MEDS ORDERED: DILTIAZEM HCL 25 MG IV ONE (13:58)
[2024-02-12] MEDS ORDERED: IOHEXOL 0 ML IV ONE (14:03)
[2024-02-12] MEDS ORDERED: HEPARIN SODIUM, PORCINE 1,000 UNIT/ML VIAL ONE (14:03)
[2024-02-12] MEDS ORDERED: LIDOCAINE HCL/MPF 1% 30 ML VIAL IJ ONE (14:03)
[2024-02-12] MEDS: PROPOFOL 200 MG/20 ML VIAL IV ONE (14:30)
[2024-02-12] MEDS ORDERED: NEPRO 1,000 ML BOTTLE GT SCH (16:00)
[2024-02-12] MEDS ORDERED: MIDAZOLAM HCL 50 MG in IV NS 0.9% 40 ML IV PRN (16:00)
[2024-02-12] MEDS ORDERED: MIDAZOLAM HCL 100 MG in IV NS 0.9% 80 ML IV PRN (16:30)
[2024-02-12] MEDS: NEPRO 1,000 ML BOTTLE GT SCH (20:00)
[2024-02-12] MEDS: PRECEDEX 400 MCG/100 ML BOTTLE 100 ML IV PRN (23:16)
[2024-02-13] VITALS (24 sets, daily range): BP systolic 114–143; BP diastolic 56–99; TEMP 97.7–98.7; O2SAT 97–100
[2024-02-13 04:54] LABS: BASOPHILS # (AUTO) 0.1 K/uL (0.0-0.2); BASOPHILS % (AUTO) 1.5 % (0.0-2.0); EOSINOPHILS # (AUTO) 0.4 K/uL (0.0-0.7); EOSINOPHILS % (AUTO) 3.8 % (0.0-6.0); HEMATOCRIT 22 % (39-51); HEMOGLOBIN 7.4 g/dL (13.5-17.5); LYMPHOCYTES # (AUTO) 1.1 K/uL (0.8-4.8); LYMPHOCYTES % (AUTO) 10.9 % (20.0-44.0); MEAN CORPUSCULAR HEMOGLOBIN 31 PG (26.0-33.0); MEAN CORPUSCULAR HGB CONC 35 g/dl (31.0-36.0); MEAN CORPUSCULAR VOLUME 90 fL (80-96); MONOCYTES # (AUTO) 0.6 K/uL (0.1-1.30); MONOCYTES % (AUTO) 6.1 % (2.0-12.0); NEUTROPHILS # (AUTO) 7.8 K/uL (1.8-8.9); NEUTROPHILS % (AUTO) 77.7 % (43.0-81.0); PLATELET COUNT (AUTO) 263 K/uL (150-450); RED CELL DISTRIBUTION WIDTH 14.4 % (11.5-15.0)
[2024-02-13 05:07] LABS: INR 1.08 (0.91-1.10); PARTIAL THROMBOPLASTIN TIME 28.3 SEC (24.3-34.3); PROTHROMBIN TIME 11.4 SECS (9.2-11.1)
[2024-02-13 05:11] LABS: HEPATITIS B CORE AB, IgM Negative (Negative); HEPATITIS B CORE AB, TOTAL Negative (Negative); HEPATITIS B SURFACE AB Reactive (.)
[2024-02-13 05:33] LABS: D-DIMER 7.09 mg/L(FEU (0.17-0.50)
[2024-02-13 05:55] LABS: CALCIUM, SERUM 7.6 mg/dL (8.5-10.1); CREATININE 4.5 mg/dL (0.6-1.3); MAGNESIUM 1.8 mg/dL (1.8-2.4); POTASSIUM 2.9 mmol/L (3.5-5.1)
[2024-02-13 06:17] LABS: EOSINOPHILS % (MANUAL) 5 % (0-4); LYMPHOCYTES % (MANUAL) 3 % (16-48); MONOCYTES % (MANUAL) 4 % (0-11.0); MYELOCYTES % 1 % (0-0); NEUTROPHILS % (MANUAL) 87 (42-76); PLATELET ESTIMATE ADEQUATE
[2024-02-13 10:33] LABS: ABG OXYGEN SATURATION 99.1 % (94.0-98.0); ABG PCO2 42.4 mmHg (35.0-48.0); ABG PH 7.431 (7.350-7.450); ABG PO2 174.9 mmHg (83.0-108.0); ABG TOTAL HEMOGLOBIN 7.7 G/dL (13.5-17.5); COHb 0.5 % (0.5-1.5); O2Hb 98.6 % (94.0-97.0); PEEP,BG 5 cm H2O; SITE, ABG RIGHT RADIAL; VT, ABG 450 mL
[2024-02-13] MEDS: LINEZOLID RTU BAG 600 MG in PREMIX 1 EA IV SCH (16:02)
[2024-02-14] VITALS (26 sets, daily range): BP systolic 110–143; BP diastolic 51–107; TEMP 96.7–99; O2SAT 97–100
[2024-02-14 05:35] LABS: BASOPHILS # (AUTO) 0.1 K/uL (0.0-0.2); BASOPHILS % (AUTO) 1.3 % (0.0-2.0); EOSINOPHILS # (AUTO) 0.3 K/uL (0.0-0.7); EOSINOPHILS % (AUTO) 3.9 % (0.0-6.0); HEMATOCRIT 21 % (39-51); LYMPHOCYTES # (AUTO) 0.9 K/uL (0.8-4.8); LYMPHOCYTES % (AUTO) 10.5 % (20.0-44.0); MEAN CORPUSCULAR HEMOGLOBIN 30 PG (26.0-33.0); MEAN CORPUSCULAR HGB CONC 33 g/dl (31.0-36.0); MEAN CORPUSCULAR VOLUME 90 fL (80-96); MONOCYTES # (AUTO) 0.6 K/uL (0.1-1.30); MONOCYTES % (AUTO) 7.6 % (2.0-12.0); NEUTROPHILS # (AUTO) 6.6 K/uL (1.8-8.9); NEUTROPHILS % (AUTO) 76.7 % (43.0-81.0); PLATELET COUNT (AUTO) 301 K/uL (150-450); RED CELL DISTRIBUTION WIDTH 14.9 % (11.5-15.0); WHITE BLOOD COUNT (AUTO) 8.5 K/uL (4.3-11.0)
[2024-02-14 05:39] LABS: ALBUMIN 1.5 g/dL (3.4-5.0); CREATININE 4.3 mg/dL (0.6-1.3); PHOSPHORUS 3.6 mg/dL (2.5-4.9); TOTAL PROTEIN, SERUM 6.2 g/dL (6.4-8.2)
[2024-02-14 05:45] LABS: HEMOGLOBIN 6.9 g/dL (13.5-17.5)
[2024-02-14 05:58] LABS: POTASSIUM 2.7 mmol/L (3.5-5.1)
[2024-02-14 06:06] LABS: INR 1.09 (0.91-1.10); PARTIAL THROMBOPLASTIN TIME 30.3 SEC (24.3-34.3); PROTHROMBIN TIME 11.5 SECS (9.2-11.1)
[2024-02-14 06:11] LABS: D-DIMER 5.06 mg/L(FEU (0.17-0.50)
[2024-02-14] MEDS: POTASSIUM CL. PREMIX PERIPHER. 50 ML IV SCH (07:00)
[2024-02-14 09:15] LABS: ABG BASE EXCESS 5.6 mmol/L (-2.0-3.0); ABG OXYGEN SATURATION 99.2 % (94.0-98.0); ABG PCO2 42.6 mmHg (35.0-48.0); ABG PH 7.464 (7.350-7.450); ABG PO2 162.2 mmHg (83.0-108.0); ABG TOTAL HEMOGLOBIN 7.5 G/dL (13.5-17.5); MetHb 0.3 % (0.0-1.5); O2Hb 97.9 % (94.0-97.0); SITE, ABG RIGHT RADIAL
[2024-02-14 10:48] LABS: EOSINOPHILS % (MANUAL) 1 % (0-4); LYMPHOCYTES % (MANUAL) 10 % (16-48); MONOCYTES % (MANUAL) 7 % (0-11.0)
[2024-02-14 10:49] LABS: NEUTROPHILS % (MANUAL) 82 (42-76); PLATELET ESTIMATE ADEQUATE
[2024-02-14 10:50] LABS: STOMATOCYTES 1+
[2024-02-14 14:39] LABS: FERRITIN 512 ng/mL (8-388)
[2024-02-14 18:56] LABS: IRON, SERUM 43 ug/dl (50-175); TOTAL IRON BINDING CAPACITY 144 ug/dl (250-450)
[2024-02-14] MEDS: FLUCONAZOLE (100 MG) 100 MG TABLET GT SCH (20:53)
[2024-02-14] MEDS: LINEZOLID 600 MG TABLET GT SCH (20:53)
[2024-02-15] VITALS (38 sets, daily range): BP systolic 116–168; BP diastolic 57–114; TEMP 97–98.5; O2SAT 92–100
[2024-02-15 04:37] LABS: BASOPHILS # (AUTO) 0.1 K/uL (0.0-0.2); BASOPHILS % (AUTO) 1.1 % (0.0-2.0); EOSINOPHILS # (AUTO) 0.2 K/uL (0.0-0.7); EOSINOPHILS % (AUTO) 2.5 % (0.0-6.0); LYMPHOCYTES % (AUTO) 9.9 % (20.0-44.0); MEAN CORPUSCULAR HEMOGLOBIN 31 PG (26.0-33.0); MEAN CORPUSCULAR HGB CONC 34 g/dl (31.0-36.0); MEAN CORPUSCULAR VOLUME 90 fL (80-96); MONOCYTES # (AUTO) 0.6 K/uL (0.1-1.30); MONOCYTES % (AUTO) 6.5 % (2.0-12.0); NEUTROPHILS # (AUTO) 7.7 K/uL (1.8-8.9); PLATELET COUNT (AUTO) 313 K/uL (150-450); RED BLOOD CELL COUNT(AUTO) 2.11 MIL/uL (4.5-6.0); RED CELL DISTRIBUTION WIDTH 14.8 % (11.5-15.0); WHITE BLOOD COUNT (AUTO) 9.6 K/uL (4.3-11.0)
[2024-02-15 04:45] LABS: ALBUMIN 1.6 g/dL (3.4-5.0); BILIRUBIN,TOTAL 0.9 mg/dL (0.2-1.0); CALCIUM, SERUM 7.8 mg/dL (8.5-10.1); CREATININE 4.1 mg/dL (0.6-1.3); MAGNESIUM 1.9 mg/dL (1.8-2.4); PHOSPHORUS 2.6 mg/dL (2.5-4.9); POTASSIUM 2.9 mmol/L (3.5-5.1); TOTAL PROTEIN, SERUM 6.2 g/dL (6.4-8.2)
[2024-02-15 05:10] LABS: HEMOGLOBIN 6.5 g/dL (13.5-17.5)
[2024-02-15 05:11] LABS: HEMATOCRIT 19 % (39-51)
[2024-02-15] MEDS ORDERED: DC PROPOFOL WHEN EXTUBATED XX PRN (08:00)
[2024-02-15 09:47] LABS: ABG BASE EXCESS 5.2 mmol/L (-2.0-3.0); ABG OXYGEN SATURATION 98.9 % (94.0-98.0); ABG PCO2 45.9 mmHg (35.0-48.0); ABG PH 7.433 (7.350-7.450); ABG PO2 135.8 mmHg (83.0-108.0); ABG TOTAL HEMOGLOBIN 7.7 G/dL (13.5-17.5); COHb 0.9 % (0.5-1.5); MetHb 0.3 % (0.0-1.5); O2Hb 97.7 % (94.0-97.0); SITE, ABG ALINE
[2024-02-15 13:10] LABS: LYMPHOCYTES % (MANUAL) 6 % (16-48); METAMYELOCYTES % 1 % (0-0); MONOCYTES % (MANUAL) 4 % (0-11.0); MYELOCYTES % 2 % (0-0)
[2024-02-15 13:13] LABS: NEUTROPHILS % (MANUAL) 87 (42-76); PLATELET ESTIMATE ADEQUATE
[2024-02-15 13:14] LABS: STOMATOCYTES 1+
[2024-02-15] MEDS: IV D5/0.45 NACL 1,000 ML IV ONE (17:17)
[2024-02-16] VITALS (31 sets, daily range): BP systolic 98–180; BP diastolic 55–133; TEMP 97.5–100; O2SAT 93–100
[2024-02-16 05:26] LABS: BASOPHILS # (AUTO) 0.1 K/uL (0.0-0.2); BASOPHILS % (AUTO) 0.7 % (0.0-2.0); EOSINOPHILS % (AUTO) 0.1 % (0.0-6.0); HEMATOCRIT 21 % (39-51); LYMPHOCYTES # (AUTO) 2.1 K/uL (0.8-4.8); LYMPHOCYTES % (AUTO) 10.5 % (20.0-44.0); MEAN CORPUSCULAR HEMOGLOBIN 31 PG (26.0-33.0); MEAN CORPUSCULAR HGB CONC 33 g/dl (31.0-36.0); MEAN CORPUSCULAR VOLUME 93 fL (80-96); MONOCYTES # (AUTO) 1.8 K/uL (0.1-1.30); MONOCYTES % (AUTO) 8.7 % (2.0-12.0); NEUTROPHILS # (AUTO) 16.1 K/uL (1.8-8.9); PLATELET COUNT (AUTO) 390 K/uL (150-450); RED BLOOD CELL COUNT(AUTO) 2.24 MIL/uL (4.5-6.0); RED CELL DISTRIBUTION WIDTH 15.4 % (11.5-15.0); WHITE BLOOD COUNT (AUTO) 20.1 K/uL (4.3-11.0)
[2024-02-16 05:37] LABS: CREATININE 4.1 mg/dL (0.6-1.3); POTASSIUM 3.6 mmol/L (3.5-5.1)
[2024-02-16 05:45] LABS: HEMOGLOBIN 6.9 g/dL (13.5-17.5)
[2024-02-16 06:13] LABS: LYMPHOCYTES % (MANUAL) 8 % (16-48); MONOCYTES % (MANUAL) 7 % (0-11.0); NEUTROPHILS % (MANUAL) 85 (42-76); PLATELET ESTIMATE ADEQUATE
[2024-02-16 06:15] LABS: ANISOCYTOSIS 1+; HYPOCHROMASIA 1+; STOMATOCYTES 1+
[2024-02-16 06:22] LABS: ABG BASE EXCESS -1.4 mmol/L (-2.0-3.0); ABG OXYGEN SATURATION 87.2 % (94.0-98.0); ABG PCO2 39.8 mmHg (35.0-48.0); ABG PH 7.388 (7.350-7.450); ABG PO2 59.2 mmHg (83.0-108.0); ABG TOTAL HEMOGLOBIN 7.9 G/dL (13.5-17.5); COHb 0.4 % (0.5-1.5); MetHb 0.1 % (0.0-1.5); O2Hb 86.8 % (94.0-97.0); SITE, ABG LEFT RADIAL
[2024-02-16 10:15] LABS: ABG BASE EXCESS -6.4 mmol/L (-2.0-3.0); ABG OXYGEN SATURATION 95.3 % (94.0-98.0); ABG PCO2 35.4 mmHg (35.0-48.0); ABG PH 7.341 (7.350-7.450); ABG PO2 89.8 mmHg (83.0-108.0); ABG TOTAL HEMOGLOBIN 7.4 G/dL (13.5-17.5); COHb 0.1 % (0.5-1.5); MetHb 0.3 % (0.0-1.5); O2Hb 94.9 % (94.0-97.0); SITE, ABG RIGHT RADIAL
[2024-02-16] MEDS: IV 10% DEXTROSE 1,000 ML IV SCH (13:09)
[2024-02-16 15:33] LABS: INR 1.8 (0.91-1.10); PARTIAL THROMBOPLASTIN TIME 29.3 SEC (24.3-34.3); PROTHROMBIN TIME 18.4 SECS (9.2-11.1)
[2024-02-16 16:10] LABS: D-DIMER 20.19 mg/L(FEU (0.17-0.50)
[2024-02-16] MEDS: MEROPENEM 500 MG in IV NS 0.9% 50 ML IV SCH (16:29)
[2024-02-16] MEDS: VANCOMYCIN 1 GM in IV D5W 250 ML IV ONE (17:15)
[2024-02-17] VITALS (24 sets, daily range): BP systolic 122–157; BP diastolic 54–119; TEMP 97.7–99.6; O2SAT 94–100
[2024-02-17 11:48] LABS: INR 2.42 (0.91-1.10); PARTIAL THROMBOPLASTIN TIME 29.8 SEC (24.3-34.3); PROTHROMBIN TIME 24.2 SECS (9.2-11.1)
[2024-02-17 11:49] LABS: D-DIMER 23.75 mg/L(FEU (0.17-0.50)
[2024-02-17 11:50] LABS: BASOPHILS # (AUTO) 0.1 K/uL (0.0-0.2); BASOPHILS % (AUTO) 0.3 % (0.0-2.0); EOSINOPHILS % (AUTO) 0.1 % (0.0-6.0); LYMPHOCYTES # (AUTO) 1.7 K/uL (0.8-4.8); LYMPHOCYTES % (AUTO) 10.2 % (20.0-44.0); MEAN CORPUSCULAR HEMOGLOBIN 30 PG (26.0-33.0); MEAN CORPUSCULAR HGB CONC 32 g/dl (31.0-36.0); MEAN CORPUSCULAR VOLUME 94 fL (80-96); MONOCYTES # (AUTO) 1.1 K/uL (0.1-1.30); MONOCYTES % (AUTO) 6.4 % (2.0-12.0); PLATELET COUNT (AUTO) 213 K/uL (150-450); RED BLOOD CELL COUNT(AUTO) 2.11 MIL/uL (4.5-6.0); RED CELL DISTRIBUTION WIDTH 15.8 % (11.5-15.0); WHITE BLOOD COUNT (AUTO) 16.8 K/uL (4.3-11.0)
[2024-02-17 11:52] LABS: HEMATOCRIT 20 % (39-51); HEMOGLOBIN 6.4 g/dL (13.5-17.5)
[2024-02-17 12:20] LABS: ALBUMIN 2.3 g/dL (3.4-5.0); CALCIUM, SERUM 8.8 mg/dL (8.5-10.1); CREATININE 4.9 mg/dL (0.6-1.3); PHOSPHORUS 2.9 mg/dL (2.5-4.9); POTASSIUM 3.4 mmol/L (3.5-5.1); TOTAL PROTEIN, SERUM 7.4 g/dL (6.4-8.2)
[2024-02-17] MEDS: PHYTONADIONE INJ 10 MG/1 ML AMPUL SQ ONE (13:45)
[2024-02-17] MEDS ORDERED: diphenhydrAMINE HCL 50 MG/ML VIAL IV ONE (14:00)
[2024-02-17 18:05] LABS: LYMPHOCYTES % (MANUAL) 10 % (16-48); MONOCYTES % (MANUAL) 2 % (0-11.0); NEUTROPHILS % (MANUAL) 88 (42-76)
[2024-02-17 18:06] LABS: ANISOCYTOSIS 1+; HYPOCHROMASIA 1+; PLATELET ESTIMATE ADEQUATE
[2024-02-17] MEDS: diphenhydrAMINE HCL 50 MG/ML VIAL IV PRN (21:06)
[2024-02-18] VITALS (24 sets, daily range): BP systolic 124–164; BP diastolic 64–155; TEMP 98.2–98.9; O2SAT 92–100
[2024-02-18 05:04] LABS: BASOPHILS % (AUTO) 0.1 % (0.0-2.0); EOSINOPHILS % (AUTO) 0.1 % (0.0-6.0); LYMPHOCYTES # (AUTO) 1.5 K/uL (0.8-4.8); LYMPHOCYTES % (AUTO) 7.6 % (20.0-44.0); MEAN CORPUSCULAR HEMOGLOBIN 30 PG (26.0-33.0); MEAN CORPUSCULAR HGB CONC 33 g/dl (31.0-36.0); MEAN CORPUSCULAR VOLUME 93 fL (80-96); MONOCYTES # (AUTO) 1.2 K/uL (0.1-1.30); MONOCYTES % (AUTO) 6.5 % (2.0-12.0); NEUTROPHILS # (AUTO) 16.4 K/uL (1.8-8.9); NEUTROPHILS % (AUTO) 85.7 % (43.0-81.0); PLATELET COUNT (AUTO) 246 K/uL (150-450); RED CELL DISTRIBUTION WIDTH 15.8 % (11.5-15.0); WHITE BLOOD COUNT (AUTO) 19.1 K/uL (4.3-11.0)
[2024-02-18 05:06] LABS: INR 2.59 (0.91-1.10); PARTIAL THROMBOPLASTIN TIME 29.6 SEC (24.3-34.3); PROTHROMBIN TIME 25.8 SECS (9.2-11.1)
[2024-02-18 05:07] LABS: D-DIMER 21.5 mg/L(FEU (0.17-0.50)
[2024-02-18 05:08] LABS: RED BLOOD CELL COUNT(AUTO) 1.88 MIL/uL (4.5-6.0)
[2024-02-18 05:09] LABS: HEMATOCRIT 17 % (39-51); HEMOGLOBIN 5.7 g/dL (13.5-17.5)
[2024-02-18 05:58] LABS: ALBUMIN 2.5 g/dL (3.4-5.0); BILIRUBIN,TOTAL 3.5 mg/dL (0.2-1.0); CALCIUM, SERUM 8.6 mg/dL (8.5-10.1); CREATININE 4.1 mg/dL (0.6-1.3); MAGNESIUM 1.9 mg/dL (1.8-2.4); PHOSPHORUS 2.4 mg/dL (2.5-4.9); POTASSIUM 3.2 mmol/L (3.5-5.1); TOTAL PROTEIN, SERUM 7.7 g/dL (6.4-8.2)
[2024-02-18 06:11] LABS: ABG BASE EXCESS -2.3 mmol/L (-2.0-3.0); ABG OXYGEN SATURATION 85.5 % (94.0-98.0); ABG PCO2 34.4 mmHg (35.0-48.0); ABG PH 7.421 (7.350-7.450); ABG PO2 55.4 mmHg (83.0-108.0); ABG TOTAL HEMOGLOBIN 7.8 G/dL (13.5-17.5); COHb 0.3 % (0.5-1.5); MetHb 0.1 % (0.0-1.5); O2Hb 85.2 % (94.0-97.0); SITE, ABG RIGHT RADIAL
[2024-02-18 07:59] LABS: LYMPHOCYTES % (MANUAL) 8 % (16-48); MONOCYTES % (MANUAL) 6 % (0-11.0); NEUTROPHILS % (MANUAL) 86 (42-76)
[2024-02-18 08:00] LABS: ANISOCYTOSIS 1+; HYPOCHROMASIA 1+; PLATELET ESTIMATE ADEQUATE
[2024-02-18] MEDS: POTASSIUM PHOSPHATE MM 15 MMOL in IV NS 0.9% 250 ML IV SCH (10:17)
[2024-02-18] MEDS ORDERED: POTASSIUM CL. PREMIX PERIPHER. 50 ML IV SCH (10:30)
[2024-02-18] MEDS: EPOETIN ALFA (10,000 UNIT) 10,000 UNIT/ML VIAL SQ ONE (10:33)
[2024-02-18] MEDS: POTASSIUM CL. PREMIX PERIPHER. 50 ML IV SCH (13:36)
[2024-02-18 18:30] LABS: INR 2.46 (0.91-1.10); PROTHROMBIN TIME 24.6 SECS (9.2-11.1)
[2024-02-19] VITALS (29 sets, daily range): BP systolic 112–177; BP diastolic 67–116; TEMP 97.7–98.7; O2SAT 79–100
[2024-02-19] MEDS: ACETAMINOPHEN 650 MG/SUPP.RECT RC PRN (03:11)
[2024-02-19] MEDS: diphenhydrAMINE HCL 50 MG/ML VIAL IV ONE (03:11)
[2024-02-19 09:40] LABS: BASOPHILS # (AUTO) 0.1 K/uL (0.0-0.2); BASOPHILS % (AUTO) 0.6 % (0.0-2.0); HEMATOCRIT 23 % (39-51); HEMOGLOBIN 7.2 g/dL (13.5-17.5); LYMPHOCYTES # (AUTO) 1.9 K/uL (0.8-4.8); LYMPHOCYTES % (AUTO) 9.3 % (20.0-44.0); MEAN CORPUSCULAR HEMOGLOBIN 29 PG (26.0-33.0); MEAN CORPUSCULAR HGB CONC 32 g/dl (31.0-36.0); MEAN CORPUSCULAR VOLUME 92 fL (80-96); MONOCYTES # (AUTO) 1.6 K/uL (0.1-1.30); MONOCYTES % (AUTO) 7.6 % (2.0-12.0); NEUTROPHILS # (AUTO) 16.9 K/uL (1.8-8.9); NEUTROPHILS % (AUTO) 82.5 % (43.0-81.0); PLATELET COUNT (AUTO) 244 K/uL (150-450); RED BLOOD CELL COUNT(AUTO) 2.46 MIL/uL (4.5-6.0); RED CELL DISTRIBUTION WIDTH 16.2 % (11.5-15.0); WHITE BLOOD COUNT (AUTO) 20.5 K/uL (4.3-11.0)
[2024-02-19 10:06] LABS: ALBUMIN 2.4 g/dL (3.4-5.0); BILIRUBIN,TOTAL 4.4 mg/dL (0.2-1.0); CALCIUM, SERUM 8.5 mg/dL (8.5-10.1); CREATININE 5.8 mg/dL (0.6-1.3); PHOSPHORUS 4.2 mg/dL (2.5-4.9); TOTAL PROTEIN, SERUM 7.9 g/dL (6.4-8.2)
[2024-02-19 10:26] LABS: INR 2.15 (0.91-1.10); PARTIAL THROMBOPLASTIN TIME 27.3 SEC (24.3-34.3); PROTHROMBIN TIME 21.7 SECS (9.2-11.1)
[2024-02-19 10:51] LABS: D-DIMER 21.79 mg/L(FEU (0.17-0.50)
[2024-02-19 11:50] LABS: BAND % (MANUAL) 2 % (0.0-5.0); LYMPHOCYTES % (MANUAL) 12 % (16-48); METAMYELOCYTES % 1 % (0-0); MONOCYTES % (MANUAL) 8 % (0-11.0); NEUTROPHILS % (MANUAL) 77 (42-76)
[2024-02-19 11:51] LABS: ANISOCYTOSIS 1+; PLATELET ESTIMATE ADEQUATE
[2024-02-19] MEDS ORDERED: PHENYLEPHRINE 50 MG in IV NS 0.9% 245 ML IV PRN (13:30)
[2024-02-19] MEDS: VANCOMYCIN POST DIALYSIS 500MG IV PRN (15:44)
[2024-02-19] MEDS ORDERED: DEXTROSE 5% IV PRN (16:00)
[2024-02-19] MEDS ORDERED: TPN ADDITIVES IV PRN (16:00)
[2024-02-19] MEDS ORDERED: AMINO ACIDS IV PRN (16:00)
[2024-02-19] MEDS: PPN BAG #1 IV SCH (18:28)
[2024-02-19] MEDS: METOPROLOL TARTRATE INJ 5 MG/5 ML AMPUL IVP ONE (21:34)
[2024-02-20] VITALS (32 sets, daily range): BP systolic 111–197; BP diastolic 85–115; TEMP 97.2–98.6; O2SAT 95–100
[2024-02-20 05:32] LABS: INR 2.21 (0.91-1.10); PARTIAL THROMBOPLASTIN TIME 34.2 SEC (24.3-34.3); PROTHROMBIN TIME 22.2 SECS (9.2-11.1)
[2024-02-20 05:48] LABS: D-DIMER 23.46 mg/L(FEU (0.17-0.50)
[2024-02-20 14:49] LABS: CALCIUM, SERUM 8.5 mg/dL (8.5-10.1); CREATININE 4.8 mg/dL (0.6-1.3); MAGNESIUM 1.8 mg/dL (1.8-2.4); POTASSIUM 3.5 mmol/L (3.5-5.1)
[2024-02-20 15:03] LABS: BASOPHILS % (AUTO) 0.1 % (0.0-2.0); HEMATOCRIT 21 % (39-51); LYMPHOCYTES # (AUTO) 3.2 K/uL (0.8-4.8); LYMPHOCYTES % (AUTO) 13.7 % (20.0-44.0); MEAN CORPUSCULAR HEMOGLOBIN 30 PG (26.0-33.0); MEAN CORPUSCULAR HGB CONC 33 g/dl (31.0-36.0); MEAN CORPUSCULAR VOLUME 92 fL (80-96); MONOCYTES # (AUTO) 1.4 K/uL (0.1-1.30); MONOCYTES % (AUTO) 5.9 % (2.0-12.0); NEUTROPHILS # (AUTO) 18.5 K/uL (1.8-8.9); NEUTROPHILS % (AUTO) 80.3 % (43.0-81.0); PLATELET COUNT (AUTO) 241 K/uL (150-450); RED BLOOD CELL COUNT(AUTO) 2.29 MIL/uL (4.5-6.0); RED CELL DISTRIBUTION WIDTH 16.3 % (11.5-15.0)
[2024-02-20 15:10] LABS: HEMOGLOBIN 6.9 g/dL (13.5-17.5)
[2024-02-20 15:54] LABS: ANISOCYTOSIS 1+; LYMPHOCYTES % (MANUAL) 9 % (16-48); MONOCYTES % (MANUAL) 3 % (0-11.0); NEUTROPHILS % (MANUAL) 86 (42-76); PLATELET ESTIMATE ADEQUATE; REACTIVE LYMPHOCYTES 2 % (0-0); TARGET CELLS 1+
[2024-02-20 16:17] LABS: ALBUMIN 2.4 g/dL (3.4-5.0)
[2024-02-20 16:20] LABS: PREALBUMIN 16.8 MG/DL (18.0-35.7)
[2024-02-20] MEDS: diphenhydrAMINE HCL 50 MG/ML VIAL IV ONE (16:24)
[2024-02-20] MEDS: PPN #2 IV SCH (18:48)
[2024-02-20] MEDS: LORAZEPAM INJ 2 MG/ML VIAL IV PRN (21:58)
[2024-02-21] VITALS (46 sets, daily range): BP systolic 110–166; BP diastolic 76–113; TEMP 98.5–98.9; O2SAT 90–100
[2024-02-21] MEDS: METOPROLOL TARTRATE INJ 5 MG/5 ML AMPUL IVP ONE (03:08)
[2024-02-21 05:52] LABS: CALCIUM, SERUM 8.5 mg/dL (8.5-10.1); CREATININE 4.6 mg/dL (0.6-1.3); MAGNESIUM 1.8 mg/dL (1.8-2.4); PHOSPHORUS 3.3 mg/dL (2.5-4.9); POTASSIUM 3.3 mmol/L (3.5-5.1)
[2024-02-21 05:56] LABS: INR 2.09 (0.91-1.10); PARTIAL THROMBOPLASTIN TIME 31.9 SEC (24.3-34.3); PROTHROMBIN TIME 21.1 SECS (9.2-11.1)
[2024-02-21 06:04] LABS: D-DIMER 23.89 mg/L(FEU (0.17-0.50)
[2024-02-21] MEDS: HYDROCORTISONE SOD SUCCINATE 100 MG/2 ML VIAL IV SCH (08:08)
[2024-02-21] MEDS ORDERED: EPOETIN ALFA (10,000 UNIT) 10,000 UNIT/ML VIAL SQ SCH (10:00)
[2024-02-21] MEDS: POTASSIUM CL. PREMIX PERIPHER. 50 ML IV SCH (10:09)
[2024-02-21] MEDS: FAT EMULSION 20% 500 ML in PREMIX 1 EA IV SCH (13:26)
[2024-02-21 13:55] LABS: CALCIUM, SERUM 8.3 mg/dL (8.5-10.1); CREATININE 5.6 mg/dL (0.6-1.3); POTASSIUM 4.3 mmol/L (3.5-5.1)
[2024-02-21 13:56] LABS: BASOPHILS # (AUTO) 0.1 K/uL (0.0-0.2); BASOPHILS % (AUTO) 0.3 % (0.0-2.0); LYMPHOCYTES # (AUTO) 2.4 K/uL (0.8-4.8); LYMPHOCYTES % (AUTO) 9.9 % (20.0-44.0); MEAN CORPUSCULAR HEMOGLOBIN 31 PG (26.0-33.0); MEAN CORPUSCULAR HGB CONC 33 g/dl (31.0-36.0); MEAN CORPUSCULAR VOLUME 94 fL (80-96); MONOCYTES # (AUTO) 1.2 K/uL (0.1-1.30); NEUTROPHILS # (AUTO) 20.4 K/uL (1.8-8.9); NEUTROPHILS % (AUTO) 84.8 % (43.0-81.0); PLATELET COUNT (AUTO) 217 K/uL (150-450); RED BLOOD CELL COUNT(AUTO) 2.05 MIL/uL (4.5-6.0); RED CELL DISTRIBUTION WIDTH 16.7 % (11.5-15.0); WHITE BLOOD COUNT (AUTO) 24.1 K/uL (4.3-11.0)
[2024-02-21 14:02] LABS: HEMATOCRIT 19 % (39-51); HEMOGLOBIN 6.3 g/dL (13.5-17.5)
[2024-02-21 14:43] LABS: BASOPHILS % (MANUAL) 0 % (0.0-2.0); EOSINOPHILS % (MANUAL) 0 % (0-4); LYMPHOCYTES % (MANUAL) 15 % (16-48); MONOCYTES % (MANUAL) 6 % (0-11.0); NEUTROPHILS % (MANUAL) 79 (42-76); PLATELET ESTIMATE ADEQUATE
[2024-02-21 14:44] LABS: ANISOCYTOSIS 1+
[2024-02-21] MEDS: PPN #3 IV SCH (19:22)
[2024-02-22] VITALS (36 sets, daily range): BP systolic 126–164; BP diastolic 64–114; TEMP 97.6–98.9; O2SAT 94–100
[2024-02-22 05:19] LABS: BASOPHILS % (AUTO) 0.2 % (0.0-2.0); EOSINOPHILS % (AUTO) 0.2 % (0.0-6.0); HEMATOCRIT 22 % (39-51); HEMOGLOBIN 8.3 g/dL (13.5-17.5); LYMPHOCYTES # (AUTO) 2.7 K/uL (0.8-4.8); LYMPHOCYTES % (AUTO) 10.7 % (20.0-44.0); MEAN CORPUSCULAR HEMOGLOBIN 35 PG (26.0-33.0); MEAN CORPUSCULAR HGB CONC 38 g/dl (31.0-36.0); MEAN CORPUSCULAR VOLUME 94 fL (80-96); MONOCYTES # (AUTO) 1.1 K/uL (0.1-1.30); MONOCYTES % (AUTO) 4.4 % (2.0-12.0); NEUTROPHILS # (AUTO) 21.6 K/uL (1.8-8.9); NEUTROPHILS % (AUTO) 84.5 % (43.0-81.0); PLATELET COUNT (AUTO) 182 K/uL (150-450); RED BLOOD CELL COUNT(AUTO) 2.33 MIL/uL (4.5-6.0); RED CELL DISTRIBUTION WIDTH 15.8 % (11.5-15.0); WHITE BLOOD COUNT (AUTO) 25.5 K/uL (4.3-11.0)
[2024-02-22 05:37] LABS: CALCIUM, SERUM 8.2 mg/dL (8.5-10.1); CREATININE 4.5 mg/dL (0.6-1.3); MAGNESIUM 1.9 mg/dL (1.8-2.4); PHOSPHORUS 2.9 mg/dL (2.5-4.9); POTASSIUM 3.5 mmol/L (3.5-5.1)
[2024-02-22] MEDS: PANTOPRAZOLE 40 MG VIAL IV SCH (10:48)
[2024-02-22 10:56] LABS: FIBRINOGEN ACTIVITY 239 Mg/dL (213-485); INR 1.38 (0.91-1.10); PARTIAL THROMBOPLASTIN TIME 30.8 SEC (24.3-34.3); PROTHROMBIN TIME 14.3 SECS (9.2-11.1)
[2024-02-22 10:57] LABS: D-DIMER > 35.20 mg/L(FEU (0.17-0.50)
[2024-02-22] MEDS: DIGOXIN INJ 0.5 MG/2 ML AMPUL IV SCH (12:51)
[2024-02-22 13:39] LABS: CALCIUM, SERUM 7.6 mg/dL (8.5-10.1); CREATININE 5.2 mg/dL (0.6-1.3); POTASSIUM 3.9 mmol/L (3.5-5.1)
[2024-02-22] MEDS: PPN #4 IV SCH (20:55)
[2024-02-23] VITALS (42 sets, daily range): BP systolic 87–173; BP diastolic 63–105; TEMP 97.8–98.8; O2SAT 95–100
[2024-02-23 07:18] LABS: BASOPHILS # (AUTO) 0.1 K/uL (0.0-0.2); BASOPHILS % (AUTO) 0.2 % (0.0-2.0); EOSINOPHILS # (AUTO) 0.2 K/uL (0.0-0.7); EOSINOPHILS % (AUTO) 0.8 % (0.0-6.0); LYMPHOCYTES # (AUTO) 1.7 K/uL (0.8-4.8); LYMPHOCYTES % (AUTO) 7.7 % (20.0-44.0); MEAN CORPUSCULAR HEMOGLOBIN 31 PG (26.0-33.0); MEAN CORPUSCULAR HGB CONC 33 g/dl (31.0-36.0); MEAN CORPUSCULAR VOLUME 94 fL (80-96); MONOCYTES # (AUTO) 0.9 K/uL (0.1-1.30); MONOCYTES % (AUTO) 4.2 % (2.0-12.0); NEUTROPHILS # (AUTO) 18.7 K/uL (1.8-8.9); NEUTROPHILS % (AUTO) 87.1 % (43.0-81.0); PLATELET COUNT (AUTO) 140 K/uL (150-450); RED BLOOD CELL COUNT(AUTO) 2.13 MIL/uL (4.5-6.0); RED CELL DISTRIBUTION WIDTH 15.5 % (11.5-15.0); WHITE BLOOD COUNT (AUTO) 21.5 K/uL (4.3-11.0)
[2024-02-23 07:39] LABS: CALCIUM, SERUM 8.8 mg/dL (8.5-10.1); CREATININE 6.2 mg/dL (0.6-1.3); MAGNESIUM 1.8 mg/dL (1.8-2.4); PHOSPHORUS 3.5 mg/dL (2.5-4.9); POTASSIUM 3.6 mmol/L (3.5-5.1)
[2024-02-23 07:58] LABS: FIBRINOGEN ACTIVITY 253 Mg/dL (213-485); PARTIAL THROMBOPLASTIN TIME 30.9 SEC (24.3-34.3); PROTHROMBIN TIME 13.5 SECS (9.2-11.1)
[2024-02-23 07:59] LABS: HEMOGLOBIN 6.7 g/dL (13.5-17.5)
[2024-02-23 08:00] LABS: HEMATOCRIT 20 % (39-51)
[2024-02-23 08:17] LABS: D-DIMER > 35.20 mg/L(FEU (0.17-0.50)
[2024-02-23] MEDS: ACETAMINOPHEN 325 MG TABLET PO ONE (09:00)
[2024-02-23 12:23] LABS: ANISOCYTOSIS 1+; BASOPHILS % (MANUAL) 0 % (0.0-2.0); EOSINOPHILS % (MANUAL) 0 % (0-4); LYMPHOCYTES % (MANUAL) 10 % (16-48); MONOCYTES % (MANUAL) 6 % (0-11.0); NEUTROPHILS % (MANUAL) 84 (42-76); OVALOCYTES FEW; PLATELET ESTIMATE DECREASED; STOMATOCYTES 1+
[2024-02-23] MEDS: EPOETIN ALFA (10,000 UNIT) 10,000 UNIT/ML VIAL SQ SCH (16:47)
[2024-02-23] MEDS: PPN #5 IV SCH (21:21)
[2024-02-23] MEDS: diphenhydrAMINE HCL 50 MG/ML VIAL IV ONE (23:23)
[2024-02-24] VITALS (39 sets, daily range): BP systolic 136–169; BP diastolic 67–100; TEMP 98–99.4; O2SAT 95–100
[2024-02-24 11:16] LABS: BASOPHILS % (AUTO) 0.2 % (0.0-2.0); EOSINOPHILS # (AUTO) 0.3 K/uL (0.0-0.7); EOSINOPHILS % (AUTO) 2.8 % (0.0-6.0); HEMATOCRIT 23 % (39-51); HEMOGLOBIN 8.2 g/dL (13.5-17.5); LYMPHOCYTES # (AUTO) 0.9 K/uL (0.8-4.8); LYMPHOCYTES % (AUTO) 9.4 % (20.0-44.0); MEAN CORPUSCULAR HEMOGLOBIN 33 PG (26.0-33.0); MEAN CORPUSCULAR HGB CONC 35 g/dl (31.0-36.0); MEAN CORPUSCULAR VOLUME 94 fL (80-96); MONOCYTES # (AUTO) 0.5 K/uL (0.1-1.30); NEUTROPHILS # (AUTO) 8.2 K/uL (1.8-8.9); NEUTROPHILS % (AUTO) 82.6 % (43.0-81.0); PLATELET COUNT (AUTO) 113 K/uL (150-450); RED BLOOD CELL COUNT(AUTO) 2.51 MIL/uL (4.5-6.0); RED CELL DISTRIBUTION WIDTH 15.7 % (11.5-15.0); WHITE BLOOD COUNT (AUTO) 9.9 K/uL (4.3-11.0)
[2024-02-24 11:32] LABS: CALCIUM, SERUM 8.2 mg/dL (8.5-10.1); CREATININE 3.9 mg/dL (0.6-1.3); MAGNESIUM 1.7 mg/dL (1.8-2.4); PHOSPHORUS 3.1 mg/dL (2.5-4.9); POTASSIUM 3.2 mmol/L (3.5-5.1)
[2024-02-24 11:35] LABS: BILIRUBIN,TOTAL 2.6 mg/dL (0.2-1.0)
[2024-02-24 11:40] LABS: INR 1.18 (0.91-1.10); PARTIAL THROMBOPLASTIN TIME 29.4 SEC (24.3-34.3); PROTHROMBIN TIME 12.4 SECS (9.2-11.1)
[2024-02-24 11:41] LABS: D-DIMER 25.14 mg/L(FEU (0.17-0.50)
[2024-02-24 13:41] LABS: EOSINOPHILS % (MANUAL) 2 % (0-4); LYMPHOCYTES % (MANUAL) 9 % (16-48); MONOCYTES % (MANUAL) 7 % (0-11.0); NEUTROPHILS % (MANUAL) 82 (42-76); PLATELET ESTIMATE DECREASED
[2024-02-24 13:42] LABS: ANISOCYTOSIS 1+
[2024-02-24 15:03] LABS: CALCIUM, SERUM 7.6 mg/dL (8.5-10.1); CREATININE 2.8 mg/dL (0.6-1.3); POTASSIUM 3.1 mmol/L (3.5-5.1)
[2024-02-24] MEDS: VANCOMYCIN POST DIALYSIS 500MG IV ONE (16:00)
[2024-02-24] MEDS: Magnesium 1GM/D5W 100ML PREMIX 100 ML IV SCH (16:00)
[2024-02-24] MEDS: PPN #6 IV SCH (19:49)
[2024-02-25] VITALS (46 sets, daily range): BP systolic 102–165; BP diastolic 62–109; TEMP 98.1–98.4; O2SAT 55–100
[2024-02-25 05:06] LABS: CALCIUM, SERUM 7.3 mg/dL (8.5-10.1); CREATININE 3.6 mg/dL (0.6-1.3); MAGNESIUM 1.7 mg/dL (1.8-2.4); PHOSPHORUS 3.6 mg/dL (2.5-4.9); POTASSIUM 3.1 mmol/L (3.5-5.1)
[2024-02-25] MEDS: POTASSIUM CL. PREMIX PERIPHER. 50 ML IV SCH (09:39)
[2024-02-25 15:35] LABS: CALCIUM, SERUM 7.8 mg/dL (8.5-10.1); CREATININE 3.7 mg/dL (0.6-1.3); POTASSIUM 3.8 mmol/L (3.5-5.1)
[2024-02-25] MEDS: VANCOMYCIN POST DIALYSIS 500MG IV PRN (17:57)
[2024-02-25] MEDS: PPN #7 IV SCH (19:21)
[2024-02-25] MEDS ORDERED: Sodium Chloride 154 MEQ in IV 10% DEXTROSE 1,000 ML IV PRN (23:30)
[2024-02-25] MEDS: DEXTROSE 10% IN WATER 250 ML BAG IV SCH (23:45)
[2024-02-26] VITALS (55 sets, daily range): BP systolic 126–167; BP diastolic 69–107; TEMP 98.1–99.1; O2SAT 91–100
[2024-02-26] MEDS: ACETAMINOPHEN 325 MG TABLET PO ONE (08:55)
[2024-02-26] MEDS: Magnesium 1GM/D5W 100ML PREMIX 100 ML IV SCH (13:29)
[2024-02-26 16:18] LABS: BASOPHILS % (AUTO) 0.3 % (0.0-2.0); EOSINOPHILS # (AUTO) 0.4 K/uL (0.0-0.7); EOSINOPHILS % (AUTO) 4.2 % (0.0-6.0); HEMATOCRIT 29 % (39-51); HEMOGLOBIN 9.9 g/dL (13.5-17.5); LYMPHOCYTES % (AUTO) 11.7 % (20.0-44.0); MEAN CORPUSCULAR HEMOGLOBIN 31 PG (26.0-33.0); MEAN CORPUSCULAR HGB CONC 34 g/dl (31.0-36.0); MEAN CORPUSCULAR VOLUME 94 fL (80-96); MONOCYTES # (AUTO) 0.6 K/uL (0.1-1.30); MONOCYTES % (AUTO) 6.8 % (2.0-12.0); NEUTROPHILS # (AUTO) 6.7 K/uL (1.8-8.9); PLATELET COUNT (AUTO) 115 K/uL (150-450); RED BLOOD CELL COUNT(AUTO) 3.15 MIL/uL (4.5-6.0); RED CELL DISTRIBUTION WIDTH 16.4 % (11.5-15.0); WHITE BLOOD COUNT (AUTO) 8.6 K/uL (4.3-11.0)
[2024-02-26 16:26] LABS: ALBUMIN 2.2 g/dL (3.4-5.0); BILIRUBIN,TOTAL 2.4 mg/dL (0.2-1.0); CALCIUM, SERUM 8.2 mg/dL (8.5-10.1); CREATININE 4.1 mg/dL (0.6-1.3); MAGNESIUM 2.3 mg/dL (1.8-2.4); POTASSIUM 3.8 mmol/L (3.5-5.1); TOTAL PROTEIN, SERUM 6.3 g/dL (6.4-8.2)
[2024-02-26 16:39] LABS: INR 1.11 (0.91-1.10); PARTIAL THROMBOPLASTIN TIME 27.8 SEC (24.3-34.3); PROTHROMBIN TIME 11.7 SECS (9.2-11.1)
[2024-02-26 16:41] LABS: D-DIMER 13.57 mg/L(FEU (0.17-0.50)
[2024-02-27] VITALS (38 sets, daily range): BP systolic 117–163; BP diastolic 74–116; TEMP 98.4–98.8; O2SAT 96–100
[2024-02-27] MEDS: PPN #8 IV SCH (03:14)
[2024-02-27 05:25] LABS: CALCIUM, SERUM 8.1 mg/dL (8.5-10.1); CREATININE 4.4 mg/dL (0.6-1.3); MAGNESIUM 2.1 mg/dL (1.8-2.4); PHOSPHORUS 3.2 mg/dL (2.5-4.9); POTASSIUM 3.8 mmol/L (3.5-5.1)
[2024-02-27] MEDS: IV NS 0.9% 250 ML IV PRN (07:00)
[2024-02-27] MEDS: PPN #9 IV SCH (21:27)
[2024-02-28] VITALS (14 sets, daily range): BP systolic 118–140; BP diastolic 75–92; TEMP 97.7–99.5; O2SAT 93–100
[2024-02-28] MEDS: ADENOSINE 6 MG/2 ML VIAL IVP ONE ×3 (00:05→00:16)
[2024-02-28] MEDS ORDERED: PPN #8 IV SCH (08:00)
[2024-02-28 08:39] LABS: BASOPHILS % (AUTO) 0.4 % (0.0-2.0); EOSINOPHILS # (AUTO) 0.3 K/uL (0.0-0.7); EOSINOPHILS % (AUTO) 3.6 % (0.0-6.0); HEMATOCRIT 32 % (39-51); HEMOGLOBIN 10.9 g/dL (13.5-17.5); LYMPHOCYTES # (AUTO) 1.3 K/uL (0.8-4.8); LYMPHOCYTES % (AUTO) 13.6 % (20.0-44.0); MEAN CORPUSCULAR HEMOGLOBIN 32 PG (26.0-33.0); MEAN CORPUSCULAR HGB CONC 34 g/dl (31.0-36.0); MEAN CORPUSCULAR VOLUME 93 fL (80-96); MONOCYTES # (AUTO) 0.7 K/uL (0.1-1.30); MONOCYTES % (AUTO) 7.7 % (2.0-12.0); NEUTROPHILS # (AUTO) 6.9 K/uL (1.8-8.9); NEUTROPHILS % (AUTO) 74.7 % (43.0-81.0); PLATELET COUNT (AUTO) 150 K/uL (150-450); RED BLOOD CELL COUNT(AUTO) 3.43 MIL/uL (4.5-6.0); RED CELL DISTRIBUTION WIDTH 17.1 % (11.5-15.0); WHITE BLOOD COUNT (AUTO) 9.3 K/uL (4.3-11.0)
[2024-02-28 08:45] LABS: CALCIUM, SERUM 8.4 mg/dL (8.5-10.1); CREATININE 3.3 mg/dL (0.6-1.3); MAGNESIUM 1.9 mg/dL (1.8-2.4); POTASSIUM 3.5 mmol/L (3.5-5.1)
[2024-02-28] MEDS: Magnesium 1GM/D5W 100ML PREMIX 100 ML IV SCH (20:11)
[2024-02-28] MEDS: POTASSIUM CL. PREMIX PERIPHER. 50 ML IV SCH (21:49)
[2024-02-28] MEDS: PPN #10 IV SCH (21:49)
[2024-02-29] VITALS (15 sets, daily range): BP systolic 126–148; BP diastolic 70–90; TEMP 97.5–99.5; O2SAT 92–100
[2024-02-29 07:15] LABS: BASOPHILS # (AUTO) 0.1 K/uL (0.0-0.2); BASOPHILS % (AUTO) 0.6 % (0.0-2.0); EOSINOPHILS # (AUTO) 0.4 K/uL (0.0-0.7); EOSINOPHILS % (AUTO) 4.8 % (0.0-6.0); HEMATOCRIT 33 % (39-51); HEMOGLOBIN 10.8 g/dL (13.5-17.5); LYMPHOCYTES # (AUTO) 1.2 K/uL (0.8-4.8); LYMPHOCYTES % (AUTO) 14.5 % (20.0-44.0); MEAN CORPUSCULAR HEMOGLOBIN 31 PG (26.0-33.0); MEAN CORPUSCULAR HGB CONC 33 g/dl (31.0-36.0); MEAN CORPUSCULAR VOLUME 93 fL (80-96); MONOCYTES # (AUTO) 0.7 K/uL (0.1-1.30); MONOCYTES % (AUTO) 8.2 % (2.0-12.0); NEUTROPHILS # (AUTO) 6.1 K/uL (1.8-8.9); NEUTROPHILS % (AUTO) 71.9 % (43.0-81.0); PLATELET COUNT (AUTO) 221 K/uL (150-450); RED BLOOD CELL COUNT(AUTO) 3.53 MIL/uL (4.5-6.0); RED CELL DISTRIBUTION WIDTH 17.4 % (11.5-15.0); WHITE BLOOD COUNT (AUTO) 8.5 K/uL (4.3-11.0)
[2024-02-29 07:40] LABS: CALCIUM, SERUM 8.7 mg/dL (8.5-10.1); CREATININE 4.1 mg/dL (0.6-1.3); PHOSPHORUS 3.8 mg/dL (2.5-4.9); POTASSIUM 3.4 mmol/L (3.5-5.1)
[2024-02-29 08:16] LABS: MAGNESIUM 2.2 mg/dL (1.8-2.4)
[2024-02-29] MEDS: ACETYLCYSTEINE 10% SOLN 400 MG/4 ML VIAL NEB SCH (16:00)
[2024-02-29] MEDS: PPN #11 IV SCH (22:26)
[2024-03-01] VITALS (16 sets, daily range): BP systolic 109–129; BP diastolic 64–85; TEMP 97.9–99; O2SAT 94–99
[2024-03-01 08:23] LABS: CALCIUM, SERUM 8.4 mg/dL (8.5-10.1); CREATININE 3.4 mg/dL (0.6-1.3); MAGNESIUM 1.8 mg/dL (1.8-2.4); PHOSPHORUS 3.4 mg/dL (2.5-4.9); POTASSIUM 3.3 mmol/L (3.5-5.1)
[2024-03-01] MEDS: Magnesium 1GM/D5W 100ML PREMIX 100 ML IV SCH (12:01)
[2024-03-01] MEDS: POTASSIUM CL. PREMIX PERIPHER. 50 ML IV SCH (12:10)
[2024-03-01] MEDS ORDERED: WEAN OFF TPN/PPN IV PRN (14:00)
[2024-03-01 14:46] LABS: BASOPHILS # (AUTO) 0.1 K/uL (0.0-0.2); BASOPHILS % (AUTO) 1.3 % (0.0-2.0); EOSINOPHILS # (AUTO) 0.4 K/uL (0.0-0.7); EOSINOPHILS % (AUTO) 3.7 % (0.0-6.0); HEMATOCRIT 34 % (39-51); HEMOGLOBIN 11.3 g/dL (13.5-17.5); LYMPHOCYTES % (AUTO) 19.5 % (20.0-44.0); MEAN CORPUSCULAR HEMOGLOBIN 31 PG (26.0-33.0); MEAN CORPUSCULAR HGB CONC 33 g/dl (31.0-36.0); MEAN CORPUSCULAR VOLUME 93 fL (80-96); MONOCYTES % (AUTO) 9.9 % (2.0-12.0); NEUTROPHILS # (AUTO) 6.7 K/uL (1.8-8.9); NEUTROPHILS % (AUTO) 65.6 % (43.0-81.0); PLATELET COUNT (AUTO) 314 K/uL (150-450); RED BLOOD CELL COUNT(AUTO) 3.67 MIL/uL (4.5-6.0); RED CELL DISTRIBUTION WIDTH 17.4 % (11.5-15.0); WHITE BLOOD COUNT (AUTO) 10.2 K/uL (4.3-11.0)
[2024-03-01] MEDS: ADENOSINE 6 MG/2 ML VIAL IVP ONE ×2 (17:10→17:30)
[2024-03-01 18:14] LABS: ALBUMIN 1.9 g/dL (3.4-5.0); BILIRUBIN,TOTAL 0.1 mg/dL (0.2-1.0); CREATININE 0.6 mg/dL (0.6-1.3); POTASSIUM 3.6 mmol/L (3.5-5.1); TOTAL PROTEIN, SERUM 5.4 g/dL (6.4-8.2)
[2024-03-01] MEDS ORDERED: PPN #12 IV SCH (22:00)
[2024-03-02] VITALS (14 sets, daily range): BP systolic 111–147; BP diastolic 66–80; TEMP 96–98.8; O2SAT 94–100
[2024-03-02 08:30] LABS: BASOPHILS # (AUTO) 0.1 K/uL (0.0-0.2); BASOPHILS % (AUTO) 1.1 % (0.0-2.0); EOSINOPHILS # (AUTO) 0.4 K/uL (0.0-0.7); EOSINOPHILS % (AUTO) 4.1 % (0.0-6.0); HEMATOCRIT 34 % (39-51); LYMPHOCYTES # (AUTO) 1.9 K/uL (0.8-4.8); LYMPHOCYTES % (AUTO) 20.8 % (20.0-44.0); MEAN CORPUSCULAR HEMOGLOBIN 30 PG (26.0-33.0); MEAN CORPUSCULAR HGB CONC 33 g/dl (31.0-36.0); MEAN CORPUSCULAR VOLUME 91 fL (80-96); MONOCYTES # (AUTO) 0.7 K/uL (0.1-1.30); PLATELET COUNT (AUTO) 375 K/uL (150-450); RED BLOOD CELL COUNT(AUTO) 3.68 MIL/uL (4.5-6.0); RED CELL DISTRIBUTION WIDTH 17.5 % (11.5-15.0); WHITE BLOOD COUNT (AUTO) 9.1 K/uL (4.3-11.0)
[2024-03-02] MEDS ORDERED: IV LIDOCAINE HCL/D5W/PF/500ML 2,000 MG in PREMIX 1 EA IV PRN (08:30)
[2024-03-02 09:01] LABS: CALCIUM, SERUM 8.8 mg/dL (8.5-10.1); CREATININE 4.2 mg/dL (0.6-1.3); MAGNESIUM 1.9 mg/dL (1.8-2.4); PHOSPHORUS 4.6 mg/dL (2.5-4.9); POTASSIUM 3.5 mmol/L (3.5-5.1)
[2024-03-02] MEDS: LIDOCAINE 100MG/5ML DISP SYR IV ONE (09:26)
[2024-03-02] MEDS: POTASSIUM CL. PREMIX PERIPHER. 50 ML IV SCH (10:21)
[2024-03-02] MEDS: Magnesium 1GM/D5W 100ML PREMIX 100 ML IV SCH (10:21)
[2024-03-02] MEDS: IV LIDOCAINE HCL/D5W/PF/500ML 2,000 MG in PREMIX 1 EA IV PRN (19:57)
[2024-03-03] VITALS (16 sets, daily range): BP systolic 112–146; BP diastolic 56–91; TEMP 98.1–98.4; O2SAT 96–100
[2024-03-03 08:05] LABS: BASOPHILS % (AUTO) 0.6 % (0.0-2.0); EOSINOPHILS # (AUTO) 0.4 K/uL (0.0-0.7); EOSINOPHILS % (AUTO) 4.6 % (0.0-6.0); HEMATOCRIT 32 % (39-51); HEMOGLOBIN 10.7 g/dL (13.5-17.5); LYMPHOCYTES # (AUTO) 1.9 K/uL (0.8-4.8); LYMPHOCYTES % (AUTO) 22.6 % (20.0-44.0); MEAN CORPUSCULAR HEMOGLOBIN 30 PG (26.0-33.0); MEAN CORPUSCULAR HGB CONC 33 g/dl (31.0-36.0); MEAN CORPUSCULAR VOLUME 91 fL (80-96); MONOCYTES # (AUTO) 0.8 K/uL (0.1-1.30); MONOCYTES % (AUTO) 9.7 % (2.0-12.0); NEUTROPHILS # (AUTO) 5.3 K/uL (1.8-8.9); NEUTROPHILS % (AUTO) 62.5 % (43.0-81.0); PLATELET COUNT (AUTO) 367 K/uL (150-450); RED BLOOD CELL COUNT(AUTO) 3.56 MIL/uL (4.5-6.0); RED CELL DISTRIBUTION WIDTH 16.8 % (11.5-15.0); WHITE BLOOD COUNT (AUTO) 8.5 K/uL (4.3-11.0)
[2024-03-03 08:08] LABS: CALCIUM, SERUM 8.6 mg/dL (8.5-10.1); CREATININE 3.4 mg/dL (0.6-1.3); PHOSPHORUS 3.6 mg/dL (2.5-4.9); POTASSIUM 3.6 mmol/L (3.5-5.1)
[2024-03-03] MEDS ORDERED: MEXILETINE HCL 150 MG CAPSULE PO SCH ×2 (09:30→10:00)
[2024-03-03] MEDS: METOPROLOL TARTRATE 25 MG TABLET PO SCH (09:55)
[2024-03-03] MEDS: MEXILETINE HCL 150 MG CAPSULE PO SCH (12:14)
[2024-03-03] MEDS ORDERED: ADENOSINE 6 MG/2 ML VIAL IVP PRN ×2 (19:00)
[2024-03-03] MEDS: ADENOSINE 6 MG/2 ML VIAL IVP STA (19:17)
[2024-03-03] MEDS: QUETIAPINE FUMARATE 25 MG TABLET PO SCH (21:07)
[2024-03-04] VITALS (16 sets, daily range): BP systolic 93–140; BP diastolic 63–76; TEMP 97.7–98.4; O2SAT 95–99
[2024-03-04 08:27] LABS: BASOPHILS % (AUTO) 0.5 % (0.0-2.0); EOSINOPHILS # (AUTO) 0.5 K/uL (0.0-0.7); EOSINOPHILS % (AUTO) 5.4 % (0.0-6.0); HEMATOCRIT 35 % (39-51); LYMPHOCYTES # (AUTO) 2.5 K/uL (0.8-4.8); LYMPHOCYTES % (AUTO) 25.3 % (20.0-44.0); MEAN CORPUSCULAR HEMOGLOBIN 30 PG (26.0-33.0); MEAN CORPUSCULAR HGB CONC 32 g/dl (31.0-36.0); MEAN CORPUSCULAR VOLUME 93 fL (80-96); MONOCYTES # (AUTO) 0.8 K/uL (0.1-1.30); MONOCYTES % (AUTO) 8.3 % (2.0-12.0); NEUTROPHILS # (AUTO) 6.1 K/uL (1.8-8.9); NEUTROPHILS % (AUTO) 60.5 % (43.0-81.0); PLATELET COUNT (AUTO) 340 K/uL (150-450); RED BLOOD CELL COUNT(AUTO) 3.71 MIL/uL (4.5-6.0); RED CELL DISTRIBUTION WIDTH 17.2 % (11.5-15.0)
[2024-03-04 08:31] LABS: ALBUMIN 2.4 g/dL (3.4-5.0); BILIRUBIN,TOTAL 1.3 mg/dL (0.2-1.0); CALCIUM, SERUM 8.9 mg/dL (8.5-10.1); CREATININE 4.3 mg/dL (0.6-1.3); TOTAL PROTEIN, SERUM 7.6 g/dL (6.4-8.2)
[2024-03-04] MEDS: PANTOPRAZOLE 40 MG TABLET.DR PO SCH (09:05)
[2024-03-04] MEDS ORDERED: ENOXAPARIN SODIUM 30 MG/0.3 ML DISP.SYRIN SQ SCH ×2 (13:00→14:00)
[2024-03-04] MEDS: HEPARIN SODIUM, PORCINE 5000 UNITS/1 ML VIAL SQ SCH (14:33)
[2024-03-04] MEDS: BLOOD SUGAR DIAGNOSTIC 1 EACH STRIP IN SCH (21:27)
[2024-03-04] MEDS ORDERED: DEXTROSE 50%-WATER 50 ML DISP.SYRIN IV PRN (21:30)
[2024-03-05] VITALS (15 sets, daily range): BP systolic 92–132; BP diastolic 64–88; TEMP 97.5–99; O2SAT 95–100
[2024-03-05 08:20] LABS: BASOPHILS % (AUTO) 0.5 % (0.0-2.0); EOSINOPHILS # (AUTO) 0.5 K/uL (0.0-0.7); EOSINOPHILS % (AUTO) 5.8 % (0.0-6.0); HEMATOCRIT 34 % (39-51); HEMOGLOBIN 11.1 g/dL (13.5-17.5); LYMPHOCYTES # (AUTO) 2.3 K/uL (0.8-4.8); LYMPHOCYTES % (AUTO) 29.4 % (20.0-44.0); MEAN CORPUSCULAR HEMOGLOBIN 30 PG (26.0-33.0); MEAN CORPUSCULAR HGB CONC 33 g/dl (31.0-36.0); MEAN CORPUSCULAR VOLUME 92 fL (80-96); MONOCYTES # (AUTO) 0.6 K/uL (0.1-1.30); MONOCYTES % (AUTO) 7.8 % (2.0-12.0); NEUTROPHILS # (AUTO) 4.5 K/uL (1.8-8.9); NEUTROPHILS % (AUTO) 56.5 % (43.0-81.0); PLATELET COUNT (AUTO) 352 K/uL (150-450); RED BLOOD CELL COUNT(AUTO) 3.68 MIL/uL (4.5-6.0); RED CELL DISTRIBUTION WIDTH 17.1 % (11.5-15.0); WHITE BLOOD COUNT (AUTO) 7.9 K/uL (4.3-11.0)
[2024-03-05 08:27] LABS: CREATININE 3.6 mg/dL (0.6-1.3); MAGNESIUM 1.7 mg/dL (1.8-2.4); PHOSPHORUS 4.9 mg/dL (2.5-4.9); POTASSIUM 3.5 mmol/L (3.5-5.1)
[2024-03-05] MEDS: Magnesium 1GM/D5W 100ML PREMIX 100 ML IV SCH (10:25)
[2024-03-05] MEDS: POTASSIUM CHLORIDE 20 MEQ TAB.PRT.SR PO SCH (10:26)
[2024-03-05] MEDS: INSULIN REGULAR, HUMAN 100 UNIT/ML 3 ML VIAL SQ PRN (21:22)
[2024-03-06] VITALS (18 sets, daily range): BP systolic 111–136; BP diastolic 60–72; TEMP 97.6–98.7; O2SAT 94–100
[2024-03-06 08:22] LABS: BASOPHILS % (AUTO) 0.2 % (0.0-2.0); EOSINOPHILS # (AUTO) 0.6 K/uL (0.0-0.7); EOSINOPHILS % (AUTO) 6.5 % (0.0-6.0); HEMATOCRIT 34 % (39-51); HEMOGLOBIN 11.1 g/dL (13.5-17.5); LYMPHOCYTES # (AUTO) 2.2 K/uL (0.8-4.8); LYMPHOCYTES % (AUTO) 22.7 % (20.0-44.0); MEAN CORPUSCULAR HEMOGLOBIN 30 PG (26.0-33.0); MEAN CORPUSCULAR HGB CONC 33 g/dl (31.0-36.0); MEAN CORPUSCULAR VOLUME 90 fL (80-96); MONOCYTES # (AUTO) 0.7 K/uL (0.1-1.30); MONOCYTES % (AUTO) 7.2 % (2.0-12.0); NEUTROPHILS # (AUTO) 6.2 K/uL (1.8-8.9); NEUTROPHILS % (AUTO) 63.4 % (43.0-81.0); PLATELET COUNT (AUTO) 381 K/uL (150-450); RED BLOOD CELL COUNT(AUTO) 3.76 MIL/uL (4.5-6.0); WHITE BLOOD COUNT (AUTO) 9.8 K/uL (4.3-11.0)
[2024-03-06 08:30] LABS: ALBUMIN 2.7 g/dL (3.4-5.0); BILIRUBIN,TOTAL 1.9 mg/dL (0.2-1.0); CALCIUM, SERUM 9.2 mg/dL (8.5-10.1); CREATININE 4.4 mg/dL (0.6-1.3); POTASSIUM 3.7 mmol/L (3.5-5.1); TOTAL PROTEIN, SERUM 8.3 g/dL (6.4-8.2)
[2024-03-06] MEDS: METOPROLOL TARTRATE 25 MG TABLET PO SCH (09:00)
[2024-03-06] MEDS: POTASSIUM CHLORIDE 20 MEQ TAB.PRT.SR PO SCH (09:43)
[2024-03-07] VITALS (15 sets, daily range): BP systolic 97–114; BP diastolic 61–89; TEMP 98.1–99.3; O2SAT 94–100
[2024-03-07] MEDS: METOPROLOL TARTRATE 50 MG TABLET PO PRN (09:04)
[2024-03-07 11:10] LABS: BASOPHILS % (AUTO) 0.2 % (0.0-2.0); EOSINOPHILS # (AUTO) 0.8 K/uL (0.0-0.7); EOSINOPHILS % (AUTO) 8.3 % (0.0-6.0); HEMATOCRIT 32 % (39-51); HEMOGLOBIN 10.3 g/dL (13.5-17.5); LYMPHOCYTES # (AUTO) 2.4 K/uL (0.8-4.8); LYMPHOCYTES % (AUTO) 25.5 % (20.0-44.0); MEAN CORPUSCULAR HEMOGLOBIN 30 PG (26.0-33.0); MEAN CORPUSCULAR HGB CONC 33 g/dl (31.0-36.0); MEAN CORPUSCULAR VOLUME 91 fL (80-96); MONOCYTES # (AUTO) 0.8 K/uL (0.1-1.30); NEUTROPHILS # (AUTO) 5.5 K/uL (1.8-8.9); PLATELET COUNT (AUTO) 292 K/uL (150-450); RED BLOOD CELL COUNT(AUTO) 3.48 MIL/uL (4.5-6.0); RED CELL DISTRIBUTION WIDTH 17.1 % (11.5-15.0); WHITE BLOOD COUNT (AUTO) 9.6 K/uL (4.3-11.0)
[2024-03-07 11:38] LABS: ALBUMIN 2.4 g/dL (3.4-5.0); BILIRUBIN,DIRECT 0.9 mg/dL (0.0-0.2); CALCIUM, SERUM 8.9 mg/dL (8.5-10.1); CREATININE 3.8 mg/dL (0.6-1.3); MAGNESIUM 1.9 mg/dL (1.8-2.4); PHOSPHORUS 4.3 mg/dL (2.5-4.9); POTASSIUM 4.1 mmol/L (3.5-5.1); TOTAL PROTEIN, SERUM 7.7 g/dL (6.4-8.2)
[2024-03-08] VITALS (14 sets, daily range): BP systolic 95–126; BP diastolic 81–91; TEMP 97.8–99.3; O2SAT 92–100
[2024-03-08 10:06] LABS: AFP, TUMOR MARKER 2.3 ng/mL (0.0-6.9)
[2024-03-08] MEDS ORDERED: PANT40TA49 PO (10:11)
[2024-03-08] MEDS ORDERED: Quetiapine Fumarate PO (10:11)
[2024-03-08] MEDS ORDERED: METO50TA16 PO (10:11)
[2024-03-08] MEDS ORDERED: MEXI150C PO (10:11)
[2024-03-08 16:53] LABS: BASOPHILS % (AUTO) 0.2 % (0.0-2.0); EOSINOPHILS # (AUTO) 0.7 K/uL (0.0-0.7); EOSINOPHILS % (AUTO) 7.4 % (0.0-6.0); HEMATOCRIT 33 % (39-51); HEMOGLOBIN 10.6 g/dL (13.5-17.5); LYMPHOCYTES # (AUTO) 1.9 K/uL (0.8-4.8); LYMPHOCYTES % (AUTO) 20.4 % (20.0-44.0); MEAN CORPUSCULAR HEMOGLOBIN 29 PG (26.0-33.0); MEAN CORPUSCULAR HGB CONC 32 g/dl (31.0-36.0); MEAN CORPUSCULAR VOLUME 91 fL (80-96); MONOCYTES # (AUTO) 0.8 K/uL (0.1-1.30); MONOCYTES % (AUTO) 8.6 % (2.0-12.0); NEUTROPHILS % (AUTO) 63.4 % (43.0-81.0); PLATELET COUNT (AUTO) 190 K/uL (150-450); RED CELL DISTRIBUTION WIDTH 17.4 % (11.5-15.0); WHITE BLOOD COUNT (AUTO) 9.4 K/uL (4.3-11.0)
[2024-03-08 17:09] LABS: ALBUMIN 2.4 g/dL (3.4-5.0); BILIRUBIN,DIRECT 0.8 mg/dL (0.0-0.2); BILIRUBIN,TOTAL 1.1 mg/dL (0.2-1.0); TOTAL PROTEIN, SERUM 7.6 g/dL (6.4-8.2)
[2024-03-08 17:34] LABS: CALCIUM, SERUM 8.7 mg/dL (8.5-10.1); CREATININE 2.5 mg/dL (0.6-1.3); MAGNESIUM 1.4 mg/dL (1.8-2.4); POTASSIUM 3.4 mmol/L (3.5-5.1)
[2024-03-09] VITALS (15 sets, daily range): BP systolic 105–118; BP diastolic 55–83; TEMP 98–99; O2SAT 94–99
[2024-03-09 08:36] LABS: ALBUMIN 2.5 g/dL (3.4-5.0); BILIRUBIN,DIRECT 0.8 mg/dL (0.0-0.2); TOTAL PROTEIN, SERUM 7.7 g/dL (6.4-8.2)
[2024-03-10] VITALS (12 sets, daily range): BP systolic 100–143; BP diastolic 46–95; TEMP 98.2–99.3; O2SAT 92–98
[2024-03-10 07:36] LABS: ALBUMIN 2.6 g/dL (3.4-5.0); BILIRUBIN,DIRECT 0.8 mg/dL (0.0-0.2); TOTAL PROTEIN, SERUM 7.7 g/dL (6.4-8.2)
[2024-03-11] VITALS (14 sets, daily range): BP systolic 100–125; BP diastolic 49–78; TEMP 97.7–98.8; O2SAT 94–99
[2024-03-11 06:46] LABS: BASOPHILS % (AUTO) 0.4 % (0.0-2.0); EOSINOPHILS % (AUTO) 10.5 % (0.0-6.0); HEMATOCRIT 33 % (39-51); HEMOGLOBIN 10.9 g/dL (13.5-17.5); LYMPHOCYTES # (AUTO) 2.9 K/uL (0.8-4.8); LYMPHOCYTES % (AUTO) 31.1 % (20.0-44.0); MEAN CORPUSCULAR HEMOGLOBIN 30 PG (26.0-33.0); MEAN CORPUSCULAR HGB CONC 33 g/dl (31.0-36.0); MEAN CORPUSCULAR VOLUME 90 fL (80-96); MONOCYTES # (AUTO) 0.9 K/uL (0.1-1.30); MONOCYTES % (AUTO) 9.9 % (2.0-12.0); NEUTROPHILS # (AUTO) 4.5 K/uL (1.8-8.9); NEUTROPHILS % (AUTO) 48.1 % (43.0-81.0); PLATELET COUNT (AUTO) 225 K/uL (150-450); RED BLOOD CELL COUNT(AUTO) 3.61 MIL/uL (4.5-6.0); RED CELL DISTRIBUTION WIDTH 16.5 % (11.5-15.0); WHITE BLOOD COUNT (AUTO) 9.4 K/uL (4.3-11.0)
[2024-03-11 07:13] LABS: ALBUMIN 2.7 g/dL (3.4-5.0); BILIRUBIN,DIRECT 0.8 mg/dL (0.0-0.2); CALCIUM, SERUM 8.9 mg/dL (8.5-10.1); CREATININE 2.5 mg/dL (0.6-1.3); MAGNESIUM 1.4 mg/dL (1.8-2.4); PHOSPHORUS 3.7 mg/dL (2.5-4.9); POTASSIUM 3.6 mmol/L (3.5-5.1); TOTAL PROTEIN, SERUM 8.1 g/dL (6.4-8.2)
[2024-03-11] MEDS: MAGNESIUM OXIDE 400 MG TABLET PO ONE (12:17)
[2024-03-12] VITALS (10 sets, daily range): BP systolic 106–135; BP diastolic 64–72; TEMP 98.2–98.6; O2SAT 94–98
[2024-03-12] MEDS: ALBUTEROL FS 2.5 MG/3 ML VIAL.NEB NEB PRN (05:58)
[2024-03-12 11:48] LABS: BASOPHILS # (AUTO) 0.1 K/uL (0.0-0.2); BASOPHILS % (AUTO) 1.1 % (0.0-2.0); EOSINOPHILS # (AUTO) 0.9 K/uL (0.0-0.7); EOSINOPHILS % (AUTO) 8.1 % (0.0-6.0); HEMATOCRIT 33 % (39-51); HEMOGLOBIN 10.9 g/dL (13.5-17.5); LYMPHOCYTES # (AUTO) 2.1 K/uL (0.8-4.8); LYMPHOCYTES % (AUTO) 20.2 % (20.0-44.0); MEAN CORPUSCULAR HEMOGLOBIN 30 PG (26.0-33.0); MEAN CORPUSCULAR HGB CONC 33 g/dl (31.0-36.0); MEAN CORPUSCULAR VOLUME 91 fL (80-96); MONOCYTES # (AUTO) 0.9 K/uL (0.1-1.30); MONOCYTES % (AUTO) 8.6 % (2.0-12.0); NEUTROPHILS # (AUTO) 6.5 K/uL (1.8-8.9); PLATELET COUNT (AUTO) 235 K/uL (150-450); RED BLOOD CELL COUNT(AUTO) 3.67 MIL/uL (4.5-6.0); RED CELL DISTRIBUTION WIDTH 16.4 % (11.5-15.0); WHITE BLOOD COUNT (AUTO) 10.5 K/uL (4.3-11.0)
[2024-03-12 12:17] LABS: ALBUMIN 2.9 g/dL (3.4-5.0); BILIRUBIN,TOTAL 0.9 mg/dL (0.2-1.0); CALCIUM, SERUM 8.7 mg/dL (8.5-10.1); CREATININE 2.2 mg/dL (0.6-1.3); MAGNESIUM 1.7 mg/dL (1.8-2.4); PHOSPHORUS 2.5 mg/dL (2.5-4.9); POTASSIUM 3.7 mmol/L (3.5-5.1); TOTAL PROTEIN, SERUM 8.4 g/dL (6.4-8.2)
== END 2024-03-12 14:48 | DRG 130 ==
LOC: ER 08:12 → ICU 09:39 → TELE-TD 02-27 18:26 → TELE1 02-28 12:38 → TELE-TD 03-01 18:31 → TELE1 03-08 10:10 → MEDSG1 03-12 09:59
PROVIDERS: ADMIT Nurse Practitioner Acute Care; ATTEND Internal Medicine
PROC: 02HV33Z Insertion of Infusion Device into Superior Vena Cava, Percutaneous Approach (ICD-10-PCS; principal; 2024-01-15)
PROC: B548ZZA Ultrasonography of Superior Vena Cava, Guidance (ICD-10-PCS; 2024-01-15)
PROC: 5A1D70Z Performance of Urinary Filtration, Intermittent, Less than 6 Hours Per Day (ICD-10-PCS; 2024-01-17)
PROC: 30233K1 Transfusion of Nonautologous Frozen Plasma into Peripheral Vein, Percutaneous Approach (ICD-10-PCS; 2024-01-18)
PROC: 05HM33Z Insertion of Infusion Device into Right Internal Jugular Vein, Percutaneous Approach (ICD-10-PCS; 2024-01-18)
PROC: B543ZZA Ultrasonography of Right Jugular Veins, Guidance (ICD-10-PCS; 2024-01-18)
PROC: 5A2204Z Restoration of Cardiac Rhythm, Single (ICD-10-PCS; 2024-01-21)
PROC: 5A1955Z Respiratory Ventilation, Greater than 96 Consecutive Hours (ICD-10-PCS; 2024-01-21)
PROC: 0BH17EZ Insertion of Endotracheal Airway into Trachea, Via Natural or Artificial Opening (ICD-10-PCS; 2024-01-21)
PROC: 5A09457 Assistance with Respiratory Ventilation, 24-96 Consecutive Hours, Continuous Positive Airway Pressure (ICD-10-PCS; 2024-02-04)
PROC: 5A1955Z Respiratory Ventilation, Greater than 96 Consecutive Hours (ICD-10-PCS; 2024-02-05)
PROC: 0BH17EZ Insertion of Endotracheal Airway into Trachea, Via Natural or Artificial Opening (ICD-10-PCS; 2024-02-05)
PROC: 30233N1 Transfusion of Nonautologous Red Blood Cells into Peripheral Vein, Percutaneous Approach (ICD-10-PCS; 2024-02-06)
PROC: 0JH63XZ Insertion of Tunneled Vascular Access Device into Chest Subcutaneous Tissue and Fascia, Percutaneous Approach (ICD-10-PCS; 2024-02-12)
PROC: 05HM33Z Insertion of Infusion Device into Right Internal Jugular Vein, Percutaneous Approach (ICD-10-PCS; 2024-02-12)
PROC: B513YZA Fluoroscopy of Right Jugular Veins using Other Contrast, Guidance (ICD-10-PCS; 2024-02-12)
PROC: 5A09557 Assistance with Respiratory Ventilation, Greater than 96 Consecutive Hours, Continuous Positive Airway Pressure (ICD-10-PCS; 2024-02-16)
PROC: 5A09357 Assistance with Respiratory Ventilation, Less than 24 Consecutive Hours, Continuous Positive Airway Pressure (ICD-10-PCS; 2024-02-22)
DX: J15.69 Pneumonia due to other Gram-negative bacteria (principal); D65 Disseminated intravascular coagulation [defibrination syndrome]; A41.81 Sepsis due to Enterococcus; I46.9 Cardiac arrest, cause unspecified; K72.00 Acute and subacute hepatic failure without coma; D61.818 Other pancytopenia; E44.1 Mild protein-calorie malnutrition; N17.0 Acute kidney failure with tubular necrosis; I42.7 Cardiomyopathy due to drug and external agent; J96.01 Acute respiratory failure with hypoxia; J15.9 Unspecified bacterial pneumonia; K92.2 Gastrointestinal hemorrhage, unspecified; I47.10 Supraventricular tachycardia, unspecified; R65.21 Severe sepsis with septic shock; I48.92 Unspecified atrial flutter; I48.91 Unspecified atrial fibrillation; R57.0 Cardiogenic shock; I50.23 Acute on chronic systolic (congestive) heart failure; E66.01 Morbid (severe) obesity due to excess calories; G93.1 Anoxic brain damage, not elsewhere classified; Z91.013 Allergy to seafood; Z79.899 Other long term (current) drug therapy; Z98.890 Other specified postprocedural states; E03.9 Hypothyroidism, unspecified; E87.1 Hypo-osmolality and hyponatremia; E87.29 Other acidosis; E11.65 Type 2 diabetes mellitus with hyperglycemia; E87.6 Hypokalemia; E88.09 Other disorders of plasma-protein metabolism, not elsewhere classified; I11.0 Hypertensive heart disease with heart failure; J98.11 Atelectasis; K42.9 Umbilical hernia without obstruction or gangrene; K56.41 Fecal impaction; K86.9 Disease of pancreas, unspecified; M89.8X9 Other specified disorders of bone, unspecified site; R13.10 Dysphagia, unspecified; Y95 Nosocomial condition; Z66 Do not resuscitate; D61.89 Other specified aplastic anemias and other bone marrow failure syndromes; Z99.11 Dependence on respirator [ventilator] status; Z99.2 Dependence on renal dialysis; Z68.30 Body mass index [BMI] 30.0-30.9, adult; F03.911 Unspecified dementia, unspecified severity, with agitation; I21.4 Non-ST elevation (NSTEMI) myocardial infarction; Z78.1 Physical restraint status; Z79.52 Long term (current) use of systemic steroids; Z86.2 Personal history of diseases of the blood and blood-forming organs and certain disorders involving the immune mechanism; Z93.1 Gastrostomy status; Z93.0 Tracheostomy status; E80.6 Other disorders of bilirubin metabolism; R74.01 Elevation of levels of liver transaminase levels; R59.0 Localized enlarged lymph nodes; D68.9 Coagulation defect, unspecified; F19.10 Other psychoactive substance abuse, uncomplicated; G92.8 Other toxic encephalopathy; R74.8 Abnormal levels of other serum enzymes; T41.295A Adverse effect of other general anesthetics, initial encounter; Y92.9 Unspecified place or not applicable; D64.9 Anemia, unspecified; K76.9 Liver disease, unspecified; Z22.322 Carrier or suspected carrier of Methicillin resistant Staphylococcus aureus
CPT/HCPCS: 31720; 36415; 36569; 36600; 70450-TC; 71045-TC; 71046; 71250-TC; 74018; 74183; 76705-TC; 78226; 80048-TC; 80053-TC; 80061-TC; 80076-TC; 80202-TC; 81001; 82040-TC; 82105; 82140-TC; 82247-TC; 82378; 82533; 82550-TC; 82553; 82607-TC; 82728-TC; 82784; 82803-TC; 82947-TC; 82962-TC; 83540-TC; 83605-TC; 83690-TC; 83735-TC; 83921; 83970; 84100-TC; 84134-TC; 84153-TC; 84154-TC; 84155; 84165; 84260; 84425; 84439-TC; 84443-TC; 84478-TC; 84484-TC; 85025-TC; 85027-TC; 85385-TC; 85396; 85610-TC; 85652-TC; 85730-TC; 86140-TC; 86225; 86235; 86301; 86316; 86334; 86431-TC; 86704; 86705; 86706; 86707; 86803; 86850; 86850-TC; 86860; 86870; 86880; 86900; 86901; 86905; 86906; 87040-TC; 87081-TC; 87086-TC; 87186-TC; 87340; 87806; 90935-TC; 92526; 92611-TC; 93307-TC; 94002-TC; 94003-TC; 94660; 94760-TC; 94762-TC; 94799-TC; 95819-TC; 97110-TC; 97112-TC; 97116-TC; 97530-TC; 97535-TC; 98960; A4216; A4223; A6253; A6403; A9537; C1750; C1751; C1757; C1769; C1894; G0378; G0480; J0153; J0171; J0282; J0330; J0360; J0461; J0692; J0885; J1160; J1200; J1250; J1450; J1644; J1650; J1720; J1815; J1885; J1940; J2002; J2003; J2020; J2060; J2185; J2250; J2270; J2354; J2405; J2470; J2543; J2704; J2919; J3010; J3370; J3430; J3475; J3480; J3490; J7030; J7040; J7050; J7060; J7070; J7120; P9016; P9017; Q9967